=== PATIENT | male | born 1950 | race Caucasian/White ===

== ENCOUNTER 2020-04-28 05:38 | Inpatient (IN) ==
--- NOTE | 2020-04-21 16:10 | Anesthesiology Consultation ---
Date of Service April 21, 2020 Assessment & Plan (1) Encounter for pre-operative examination: Per nursing phone assessment on 04/21: Travel screen: Lives in [facility]. No known COVID-19 positive contacts. No history of COVID-19 testing. No current COVID-19 related symptoms. Chart Review Chart Review: Acceptable Risk for Surgery (pending surgeon-ordered PCP clearance (Dr. Maher)) and Patient NOT seen in Pre Admission Testing History Surgery Operation Date: 04/28/20 09:05 Proposed Procedures p Right Total Knee Arthroplasty - René Hatfield DO Height/Weight Height: 5 ft 11 in Weight: 92.079 kg Allergies Allergy/AdvReac Type Severity Reaction Status Date / Time morphine AdvReac Unknown AGITATION;AGGRESSIVE; Verified 04/21/20 13:21 RASH CONTRASTMEDIA Allergy Unknown IV Uncoded 04/21/20 13:21 CONTRAST CAUSES SWELLING Medications Home Medications Medication Instructions Recorded Confirmed Last Taken BEE POLLEN 1 tbsp PO QAM #0 11/15/06 04/21/20 Unknown acetaminophen 1,000 mg PO QID PRN 01/14/20 04/21/20 Unknown atorvastatin [Lipitor] 20 mg PO QAM 01/14/20 04/21/20 Unknown coenzyme Q10 [Co Q-10] 100 mg PO QAM 01/14/20 04/21/20 Unknown loratadine [Claritin] 10 mg PO DAILY PRN 01/14/20 04/21/20 Unknown magnesium 250 mg PO QAM 01/14/20 04/21/20 Unknown multivitamin 1 tab PO QAM 01/14/20 04/21/20 Unknown omega 6-wub-nrn-fish oil [Fish Oil] 1 cap PO DAILY 01/14/20 04/21/20 Unknown omeprazole 20 mg PO QAM 01/14/20 04/21/20 Unknown fluticasone propionate [Flonase 2 spray INTRANASAL DAILY PRN 04/21/20 04/21/20 Unknown Allergy Relief] turmeric 400 mg PO QAM 04/21/20 04/21/20 Unknown Past Medical History Medical History GERD (gastroesophageal reflux disease) Hyperlipidemia Osteoarthritis Restless leg syndrome Seasonal allergies Past Family History Family History Grandfather (Paternal) Family hx of colon cancer Past Surgical History Surgical History History of colonoscopy History of total left knee replacement Hx of appendectomy Hx of arthroscopic knee surgery X2 ON LEFT; X3 RIGHT Social History Smoking Status: Former smoker Do You Dip or Chew Tobacco: No (QUIT 18 YRS AGO) Smoking End Date: QUIT 18 YRS AGO Hx Alcohol Use: No Hx Substance Use: No Testing Laboratory Results 04/21/20 WBC 6.46 H/H 16.0/45.9 PLATELETS 224 SODIUM 139 POTASSIUM 4.0 CHLORIDE 106 CO2 29 BUN 12 CREATININE 1.01 GLUCOSE 90 PT 10.7 INR 1.0 HGBA1C 5.5% 01/20/20 PTT 27.2 Electrocardiogram Date: 01/20/20 SR with first degree AVB at 64bpm. Chest X-Ray Date: 01/20/20 Findings: + NAD
--- NOTE | 2020-04-23 13:08 | History & Physical Report ---
Date of Service April 23, 2020 Date of surgery: 04-28-20 Assessment & Plan (1) Arthritis of right knee: patient presents w/ increased pain in his right knee, had cortisone injection in August with mild relief, no relief from the Visco in October, we discussed his options including cortisone and total knee replacement. he would like to proceed with right TKA at [facility].Further care discussed with patient and at this point in time has failed conservative measures and would like to proceed with a Right total knee replacement. Plan on discharge will be home with home health physical therapy. DVT prophalaxis with TEDs, SCDs and will also place on aspirin 81 mg p.o. b.i.d. for a month postop. Patient will have follow up appointment in our office two weeks post op for staple/suture removal and re- evaluation. Patient otherwise has no other questions or concerns. History of Present Illness Chief Complaint: Right knee pain Primary Care Provider: Gallito Maher PA-C Mr March is a 69 year old male who is here for a follow up of right knee pain, presents for pre-op evaluation prior to a right total knee replacement at [facility]. He presents with pain, decreased rom and stiffness on the right side. He states that the symptoms have been chronic non-traumatic. The symptoms occur constantly with intermittent worsening. Currently the patient states that the symptoms are moderate-severe. The pain is described as aching and throbbing. He rates his current pain as 8/10. The symptoms are aggravated by daily activities including walking standing and using stairs. PATIENT HAD CORTISONE INJECTION IN AUGUST AND A DUROLANE INJECTION IN OCTOBER - did not notice much relief with either injection. He has also undergone previous knee scope x 2 on the right knee. Allergies Allergy/AdvReac Type Severity Reaction Status Date / Time morphine AdvReac Unknown AGITATION;AGGRESSIVE; Verified 04/21/20 13:21 RASH CONTRASTMEDIA Allergy Unknown IV Uncoded 04/21/20 13:21 CONTRAST CAUSES SWELLING Home Medications Home Medications Medication Instructions Recorded Confirmed Type BEE POLLEN 1 tbsp PO QAM #0 11/15/06 04/21/20 History acetaminophen 1,000 mg PO QID PRN 01/14/20 04/21/20 History atorvastatin [Lipitor] 20 mg PO QAM 01/14/20 04/21/20 History coenzyme Q10 [Co Q-10] 100 mg PO QAM 01/14/20 04/21/20 History loratadine [Claritin] 10 mg PO DAILY PRN 01/14/20 04/21/20 History magnesium 250 mg PO QAM 01/14/20 04/21/20 History multivitamin 1 tab PO QAM 01/14/20 04/21/20 History omega 3-bje-ayd-fish oil [Fish Oil] 1 cap PO DAILY 01/14/20 04/21/20 History omeprazole 20 mg PO QAM 01/14/20 04/21/20 History fluticasone propionate [Flonase 2 spray INTRANASAL DAILY PRN 04/21/20 04/21/20 History Allergy Relief] turmeric 400 mg PO QAM 04/21/20 04/21/20 History Past Med/Surg History Medical History GERD (gastroesophageal reflux disease) Hyperlipidemia Osteoarthritis Restless leg syndrome Seasonal allergies Surgical History History of colonoscopy History of total left knee replacement Hx of appendectomy Hx of arthroscopic knee surgery X2 ON LEFT; X3 RIGHT Family History Grandfather (Paternal) Family hx of colon cancer Social History Preferred Language: Occitan Communication Ability: Effective Waredresser Required: No Beliefs That Will Affect Care: None Current Living Situation: Spouse Feels Safe at Home: Yes Smoking Status: Former smoker Second Hand Exposure: No ; Hx Alcohol Use: No Hx Substance Use: No Review of Systems Review of Systems: All systems reviewed & are unremarkable except as noted in HPI & below Constitutional: no fever, no chills and no sweats Respiratory: no cough and no dyspnea Cardiovascular: no chest pain, no dyspnea and no orthopnea Gastrointestinal: no abdominal pain, no nausea and no vomiting Musculoskeletal: as per Subjective / HPI Physical Exam Physical Exam: Ht: 5ft 11in Wt: 92kg Constitutional: WD/WN, vitals as above no acute distress Respiratory: normal respiratory effort, lungs clear to auscultation no respiratory distress, no labored breathing and does not use accessory muscles Cardiovascular: RRR, no murmur, no edema Gastrointestinal (Abdomen): normal bowel sounds, soft, nontender, no hepatosplenomegaly Musculoskeletal: Knee: + knee abnormal to inspection (RIGHT KNEE), + effusion (+1 effusion), + surgical incision (well healed portals), + limited ROM of knee (ROM 0/3/110), + knee ROM with crepitation, + joint line tenderness (medial joint line) and + Hayden's sign positive; no deformity, no skin erythema, no ecchymosis, no valgus laxity, no varus laxity, anterior drawer test negative, Kalie's sign negative and pivot shift test negative Results & Data Results & Data ([facility]) Diagnostic Findings right knee xray showing complete loss joint space medial compartment with overall varus alignment, there is also narrowing of the lateral compartment and patellofemoral joint. there is osteophyte formation, subchondral sclerosis noted, no loose bodies, no acute bony pathology. overall impression tricompartmental degenerative changes to the right knee.
[~2020-04-28 05:38] MED LIST: MISSING PHYSICIAN SIGNATURE ON ORDER SCH
[2020-04-28] MEDS ORDERED: LR 500ML BOLUS, THEN 15ML/HR IV SCH (06:00)
[2020-04-28] MEDS ORDERED: ROPIVACAINE 0.5% 5 MG/ML 30 ML VIAL ONE (06:18)
[2020-04-28] MEDS ORDERED: BUPIVACAINE 0.5 % 5 MG/1 ML PF 10ML VIAL ONE (06:18)
[2020-04-28] MEDS ORDERED: EPINEPHrine INJ 1 MG/ML AMP ONE (06:18)
[2020-04-28] MEDS ORDERED: fentaNYL citrate 100 MCG/2 ML VIAL ONE (06:46)
[2020-04-28] MEDS ORDERED: LIDOCAINE HCL 2% 2 ML VIAL/AMP(20MG/ML) INFIL ONE (06:46)
[2020-04-28] MEDS ORDERED: MIDAZOLAM HCL 1 MG/ML 2ML VIAL ONE (06:46)
[2020-04-28] MEDS ORDERED: PROPOFOL IV EMULSION 10 MG/ML 20 ML VIAL IV ONE ×2 (06:46→09:25)
[2020-04-28] MEDS ORDERED: BACITRACIN INJ 50,000 UNIT VIAL ONE (06:51)
[2020-04-28] MEDS ORDERED: ORTHO JOINT ANESTHETIC ONE (06:51)
[2020-04-28] MEDS ORDERED: TRANEXAMIC ACID / 0.7% NACL 1000MG/100ML BAG IV ONE (07:10)
[2020-04-28] MEDS ORDERED: CeleBREX 200 MG CAP ONE (07:10)
[2020-04-28] MEDS ORDERED: CEFAZOLIN 2,000 MG/15 ML IV PUSH IV ONE (07:10)
--- NOTE | 2020-04-28 07:21 | History & Physical Bridge Note ---
Date of Service April 28, 2020 History & Physical Bridge Note I have examined the patient, reviewed the History & Physical and in the interval since the performance of the History & Physical I have noted the following changes of clinical significance: no changes noted
[2020-04-28] MEDS ORDERED: ROPIVACAINE 0.5% HCL/PF 150 MG, BUPIVACAINE 0.5% MPF 30 ML, EPINEPHrine 0.15 MG, Ketoro... INFIL ONE (08:30)
[2020-04-28] MEDS ORDERED: ePHEDrine sulfate 50 MG/ML AMP IV PRN (08:35)
[2020-04-28] MEDS ORDERED: ATROPINE SULFATE 0.1 MG/ML 10ML SYR IV PRN (08:35)
--- NOTE | 2020-04-28 08:44 | Operative Report ---
Post Operative Report Pre & Post Diagnosis Operation Date: 04/28/20 07:15 Pre-Op Diagnosis: RIGHT KNEE OSTEOARTHRITIS Post-Op Diagnosis: RIGHT KNEE OSTEOARTHRITIS I identified the patient and participated in the time-out.: Yes Procedure Operation Date: 04/28/20 07:15 Actual Procedures p Right Total Knee Arthroplasty(Right) utilizing Brina persona TKA right medial constrained femur CR right 11 narrow tibia size G poly-medial congruent 10 mm patella 31 x 8 oval- René Hatfield DO Surgeon René Hatfield DO Dopster DOE Williamson Estimated Blood Loss 10 Findings Consistent with Post-Op Diagnosis Patient presents with severe end-stage tricompartmental degenerative joint disease no response to conservative management patient with evidence of bone to bone changes subchondral sclerosis marginal osteophytes varus alignment moderate to large effusion although response to conservative management Specimens Bone and cartilage Drains Medium bore Hemovac Anesthesia Type MAC Regional Complications none Disposition Accompanied Patient To Recovery: No Disposition: Recovery Room Indications Patient presents with severe end-stage DJD right knee after failed attempted conservative management and physical therapy anti-inflammatories relative rest activity modification corticosteroid injection Visco supplementation bracing and rest the above intraoperative findings are noted time surgery. Description of Procedure Initiation of regional and sedation with spinal block the right lower extremity socially prepped and draped in usual sterile fashion for surgery of this type utilize #10 blade incision made in the region of the anterior aspect of the knee and medial parapatellar incision was subsequently created the patella was subluxed laterally lateralward the fat pad was partially removed medial lateral meniscal remnants were removed the distal femur was prepared and skeletonized for appropriate cutting utilizing a patient matched femoral block distal femur osteotomy cut was made for 1 block was used to make additional chamfer cuts osteophytes were removed and the wound was irrigated with copious muscle sterile saline solution anterior posterior cruciate ligaments were removed the tibia was subluxed anteriorward remaining meniscal fragments were removed the proximal tibial osteotomy cut was made utilizing extramedullary tibial cutting guide stress test was paid to the neurovascular structures at all times the tibial sizing guide was used and a size G was noted to be appropriate size 11 narrow femur was placed trials were placed the patella was then socially prepared utilizing a freehand cut patella was cut to re-create normal patellar anatomy utilizing an oval 31 x 8 patella gave excellent tracking there was full range of motion from 0 to 145 degrees of flexion with stability throughout all ranges including flexion extension mid flexion trials were evaluated trials were removed subsequently the joint mix was placed in the posterior capsule special isolated paid to protect neurovascular structures at all times the final components were brought on the field and cemented in the following order tibia femur patella patellar tracking was noted be excellent the knee stability was excellent throughout all ranges of motion the wound was irrigated with copious muscle sterile saline solution Betadine wash was used the deep incision was closed #1 Vicryl subcu was closed 2-0 Vicryl skin was closed with running subcuticular suture and skin glue sterile compressive dressing was placed please note a medium bore Hemovac in place in a deep wound chloé Ayse AZAR was necessary for prepping draping retraction wound closure of deep fascia subcu and skin was necessary for the case I attest to the content of the Intraoperative Record and any orders documented therein. Any exceptions are noted below.
--- NOTE | 2020-04-28 09:48 | XRay Report ---
XR knee RT 1 or 2V routine CLINICAL HISTORY: Postop examination COMPARISON: None. DISCUSSION: There are postsurgical changes of a total right knee arthroplasty and patellar resurfacin g. There is gas present within the soft tissues. There are overlying surgical drains. The femoral tib ial components appear well seated. IMPRESSION: Postsurgical changes of a total right knee arthroplasty. ACT 112: Negative or not required by law. Electronically signed by: Danny Musa M.D. 04/28/2020 9:47 AM
--- NOTE | 2020-04-28 10:00 | Anesthesiology Progress Note ---
Date of Service April 28, 2020 Anesthesia Post Procedure Vital Signs Vital Signs: Temp Pulse Pulse Resp BP BP Pulse Ox 04/28/20 09:50 64 15 114/66 97 04/28/20 09:40 65 13 107/65 97 04/28/20 09:30 65 15 118/71 95 04/28/20 09:21 36.4 C L 71 16 109/76 96 04/28/20 06:12 36.5 C 66 16 142/91 H 97 Pain Intensity Right Knee: Pain Intensity: 5 Transfer of Care Handoff Completed per policy Notes Mental Status: alert / awake / arousable Patient Amnestic to Procedure: Yes Nausea / Vomiting: adequately controlled Pain: adequately controlled Airway Patency, RR, SpO2: stable & adequate BP & HR: stable & adequate Hydration State: stable & adequate Neuraxial Anesthesia: was administered and sensory block is resolving Anesthetic Complications: no major complications apparent
[2020-04-28] MEDS ORDERED: bisacodyL 10 MG SUPP PR PRN (10:39)
[2020-04-28] MEDS ORDERED: LORATADINE 10 MG TAB PO PRN (10:39)
[2020-04-28] MEDS ORDERED: HYDROmorphone INJ 1 MG/ML SYRINGE IV PRN (10:39)
[2020-04-28] MEDS ORDERED: NALOXONE HCL 0.4 MG/1 ML VIAL/CARP IV PRN (10:39)
[2020-04-28] MEDS ORDERED: METOCLOPRAMIDE HCL INJ 5 MG/ML 2 ML VIAL IV PRN (10:39)
[2020-04-28] MEDS ORDERED: ONDANSETRON INJ 2 MG/ML 2 ML VIAL IV PRN (10:39)
[2020-04-28] MEDS ORDERED: FLUTICASONE PROPIONATE NA SPR 16 GM BTL PRN (10:39)
[2020-04-28] MEDS ORDERED: MAGNESIUM HYDROXIDE SUSP 30 ML UDC PO PRN (10:39)
[2020-04-28] MEDS ORDERED: OXYCODONE HCL IR 5 MG TAB (IMMEDIATE RELEASE) PO PRN (10:39)
[2020-04-28] MEDS: SODIUM CHLORIDE 0.9% 1000ML 1,000 ML IV SCH ×2 (11:35→21:20)
[2020-04-28] MEDS: KETOROLAC TROMETHAMINE 15 MG/ML VIAL IV SCH ×2 (13:05→17:30)
[2020-04-28] MEDS: ACETAMINOPHEN 500 MG TAB PO SCH ×2 (13:55→21:20)
[2020-04-28] MEDS: CEFAZOLIN 2000MG 2,000 MG/15 ML SYR IV SCH (16:49)
[2020-04-28] MEDS: SENNA 8.6 MG TAB PO SCH ×2 (21:20→21:22)
[2020-04-28] MEDS: DOCUSATE SODIUM 100 MG CAP PO SCH ×2 (21:20→21:22)
[2020-04-28] MEDS: ASPIRIN 81 MG ECTAB PO SCH (21:20)
[2020-04-29] MEDS: KETOROLAC TROMETHAMINE 15 MG/ML VIAL IV SCH ×2 (00:36→05:42)
[2020-04-29] MEDS: CEFAZOLIN 2000MG 2,000 MG/15 ML SYR IV SCH (00:37)
[2020-04-29] MEDS: ACETAMINOPHEN 500 MG TAB PO SCH (05:41)
[2020-04-29 06:18] LABS: Hematocrit (blood only) 38.9 % (42-52); Hemoglobin 13.5 g/dL (14.0-18.0); Mean Corpuscular Hemoglobin 33.2 pg (25-34); Mean Corpuscular Hgb Conc 34.7 g/dL (32-36); Mean Corpuscular Volume 95.6 fL (80-100); Mean Platelet Volume 10.6 fL (7.4-10.4); Platelet Count 148 K/uL (130-400); RDW Coefficient of Variation 13.4 % (11.5-14.5); RDW Standard Deviation 46.9 fL (36.4-46.3); Red Blood Count 4.07 M/uL (4.7-6.1); White Blood Count 14.65 K/uL (4.8-10.8)
[2020-04-29 06:53] LABS: BUN Creatinine Ratio 18.3 (10-20); Est GFR (African American) 86.1; Est GFR (Non-African American) 74.3; Potassium 4.2 mmol/L (3.5-5.1)
--- NOTE | 2020-04-29 07:24 | Orthopedic Progress Note ---
Date of Service April 29, 2020 Assessment & Plan (1) History of total right knee replacement: POD #1 s/p Right TKA pt/ot dvt proph with JABIER/SCD/ASA plan for d/c home with OPPT when stable Admission and Anticipated Discharge Date Admission Date: April 28, 2020 Subjective POD #1 s/p Right TKA Review of Systems Constitutional: no fever, no chills and no sweats Respiratory: no cough and no dyspnea Cardiovascular: no chest pain and no dyspnea Gastrointestinal: no abdominal pain, no nausea and no vomiting Physical Exam Physical Exam: Vital Signs Temp Pulse Pulse Resp BP BP Pulse Ox 04/29/20 03:23 36.8 C 65 16 132/76 96 04/28/20 23:49 36.6 C 62 16 119/71 95 04/28/20 19:19 36.8 C 68 18 153/83 H 99 04/28/20 15:00 36.6 C 74 18 104/69 97 04/28/20 13:31 36.9 C 77 16 115/79 97 04/28/20 12:26 37.1 C 72 18 97/66 L 99 04/28/20 11:32 36.5 C 73 17 98/67 L 99 04/28/20 11:02 36.5 C 70 17 116/72 99 04/28/20 10:25 36.9 C 67 16 111/72 97 04/28/20 10:10 70 19 129/66 94 04/28/20 10:00 36.9 C 65 13 118/67 97 04/28/20 09:50 64 15 114/66 97 04/28/20 09:40 65 13 107/65 97 04/28/20 09:30 65 15 118/71 95 04/28/20 09:21 36.4 C L 71 16 109/76 96 Intake and Output 04/28/20 04/29/20 04/29/20 22:59 06:59 14:59 Intake Total 1475 / 4533.333 583.333 / 4533.333 Output Total 900 / 1595 600 / 1595 Balance 575 / 2938.333 -16.667 / 2938.333 Intake: IV 975 / 1818.333 343.333 / 1818.333 Nss 1000ML 1,0 00 ml @ 100 mls/ 975 / 1318.333 343.333 / 1318.333 hr IV .Q10H SC H Rx#:[id number] Oral 500 / 1015 240 / 1015 Output: Urine 650 / 1100 450 / 1100 Drain Output 250 / 485 150 / 485 Right Knee 250 / 485 150 / 485 Other: # Unmeasured Voi ds 1 1 Constitutional: WD/WN, vitals as above no acute distress Musculoskeletal: Right Leg: NVDI, calf SNT, negative richy sign. DP palpable, able to wiggle toes/ankle movement without difficulty. dressing clean dry and intact. Results & Data ([facility]) Vital Signs (Past 12 Hours) Vital Signs Temp Pulse Resp BP BP Pulse Ox 04/29/20 03:23 36.8 C 65 16 132/76 96 04/28/20 23:49 36.6 C 62 16 119/71 95 Laboratory Results Laboratory Results WBC 14.65 K/uL (4.8-10.8) H 04/29/20 05:22 RBC 4.07 M/uL (4.7-6.1) L 04/29/20 05:22 Hgb 13.5 g/dL (14.0-18.0) L 04/29/20 05:22 Hct 38.9 % (42-52) L 04/29/20 05:22 MCV 95.6 fL (80-100) 04/29/20 05:22 MCH 33.2 pg (25-34) 04/29/20 05:22 MCHC 34.7 g/dL (32-36) 04/29/20 05:22 RDW Std Deviation 46.9 fL (36.4-46.3) H 04/29/20 05:22 RDW Coeff of Dora 13.4 % (11.5-14.5) 04/29/20 05:22 Plt Count 148 K/uL (130-400) 04/29/20 05:22 MPV 10.6 fL (7.4-10.4) H 04/29/20 05:22 Sodium 139 mmol/L (136-145) 04/29/20 05:22 Potassium 4.2 mmol/L (3.5-5.1) 04/29/20 05:22 Chloride 108 mmol/L (98-107) H 04/29/20 05:22 Carbon Dioxide 24 mmol/L (21-32) 04/29/20 05:22 Anion Gap 6.0 (3-11) 04/29/20 05:22 BUN 19 mg/dl (7-18) H 04/29/20 05:22 Creatinine 1.03 mg/dl (0.6-1.4) 04/29/20 05:22 Est Cr Clr Drug Dosing 80.0 ml/min 04/29/20 05:22 Est GFR ( Amer) 86.1 04/29/20 05:22 Est GFR (Non-Af Amer) 74.3 04/29/20 05:22 BUN/Creatinine Ratio 18.3 (-20) 04/29/20 05:22 Glucose 103 mg/dl (70-99) H 04/29/20 05:22 POC Glucose 107 mg/dl (70-99) H 04/28/20 12:19 Calcium 8.0 mg/dl (8.5-10.1) L 04/29/20 05:22 Blood Type O Positive 04/28/20 06:03 Antibody Screen NEGATIVE 04/28/20 06:03 Crossmatch See Detail 04/28/20 06:03 Diagnostic Findings XR knee RT 1 or 2V routine CLINICAL HISTORY: Postop examination COMPARISON: None. DISCUSSION: There are postsurgical changes of a total right knee arthroplasty and patellar resurfacing. There is gas present within the soft tissues. There are overlying surgical drains. The femoral tibial components appear well seated. IMPRESSION: Postsurgical changes of a total right knee arthroplasty.
[2020-04-29] MEDS: ASPIRIN 81 MG ECTAB PO SCH (08:15)
[2020-04-29] MEDS: DOCUSATE SODIUM 100 MG CAP PO SCH (08:16)
--- NOTE | 2020-04-29 08:29 | Anesthesiology Progress Note ---
Date of Service April 29, 2020 Anesthesia Post Procedure Vital Signs Vital Signs: Temp Pulse Pulse Resp BP BP Pulse Ox 04/29/20 07:50 36.9 C 58 L 18 157/83 H 97 04/29/20 03:23 36.8 C 65 16 132/76 96 04/28/20 23:49 36.6 C 62 16 119/71 95 04/28/20 19:19 36.8 C 68 18 153/83 H 99 04/28/20 15:00 36.6 C 74 18 104/69 97 04/28/20 13:31 36.9 C 77 16 115/79 97 04/28/20 12:26 37.1 C 72 18 97/66 L 99 04/28/20 11:32 36.5 C 73 17 98/67 L 99 04/28/20 11:02 36.5 C 70 17 116/72 99 04/28/20 10:25 36.9 C 67 16 111/72 97 04/28/20 10:10 70 19 129/66 94 04/28/20 10:00 36.9 C 65 13 118/67 97 04/28/20 09:50 64 15 114/66 97 04/28/20 09:40 65 13 107/65 97 04/28/20 09:30 65 15 118/71 95 04/28/20 09:21 36.4 C L 71 16 109/76 96 Pain Intensity Right Knee: Pain Intensity: 4 Notes Mental Status: alert / awake / arousable and participated in evaluation Nausea / Vomiting: adequately controlled Pain: adequately controlled Airway Patency, RR, SpO2: stable & adequate BP & HR: stable & adequate Hydration State: stable & adequate Neuraxial Anesthesia: was administered and sensory block resolved Anesthetic Complications: no major complications apparent and Pt Satisfied with anesthetic care
[2020-04-29] MEDS ORDERED: MAGNESIUM OXIDE 400 MG TAB PO SCH (09:00)
[2020-04-29] MEDS ORDERED: MULTIVITAMIN TAB PO SCH (09:00)
[2020-04-29] MEDS ORDERED: ATORVASTATIN 20 MG TAB PO SCH (09:00)
[2020-04-29] MEDS ORDERED: CeleBREX 200 MG CAP PO SCH (12:00)
--- NOTE | 2020-04-29 19:18 | Discharge Summary ---
Date of Service date of discharge: April 29, 2020 date of admission: 04-28-20 Admission HPI Per Admitting Provider Mr March is a 69 year old male who is here for a follow up of right knee pain, presents for pre-op evaluation prior to a right total knee replacement at [facility]. He presents with pain, decreased rom and stiffness on the right side. He states that the symptoms have been chronic non-traumatic. The symptoms occur constantly with intermittent worsening. Currently the patient states that the symptoms are moderate-severe. The pain is described as aching and throbbing. He rates his current pain as 8/10. The symptoms are aggravated by daily activities including walking standing and using stairs. PATIENT HAD CORTISONE INJECTION IN AUGUST AND A DUROLANE INJECTION IN OCTOBER - did not notice much relief with either injection. He has also undergone previous knee scope x 2 on the right knee. Principal Diagnosis right knee arthritis Discharge Exam Vital Signs Temp Pulse Resp BP BP Pulse Ox 04/29/20 10:43 36.9 C 58 L 18 132/76 157/83 H 97 04/29/20 07:50 36.9 C 58 L 18 157/83 H 97 04/29/20 03:23 36.8 C 65 16 132/76 96 04/28/20 23:49 36.6 C 62 16 119/71 95 04/28/20 19:19 36.8 C 68 18 153/83 H 99 Intake and Output 04/29/20 04/29/20 04/29/20 06:59 14:59 22:59 Intake Total 583.333 / 4533.333 Output Total 600 / 1595 Balance -16.667 / 2938.333 Intake: IV 343.333 / 1818.333 Nss 1000ML 1,000 ml @ 100 mls/ 343.333 / 1318.333 hr IV .Q10H LADY Rx#:[id number] Oral 240 / 1015 Output: Urine 450 / 1100 Drain Output 150 / 485 Right Knee 150 / 485 Other: # Unmeasured Voids 1 Weight 93 kg Patient Weight 04/30/20 06:59 Weight 93 kg Constitutional WD/WN, vitals as above no acute distress Musculoskeletal right knee: NVDI, calf SNT, negative richy sign. DP palpable, able to wiggle toes/ankle movement without difficulty. dressing clean dry and intact. expected post-operative bruising noted. Discharge Data Allergies Allergy/AdvReac Type Severity Reaction Status Date / Time morphine AdvReac Unknown AGITATION;AGGRESSIVE; Verified 04/28/20 05:59 RASH CONTRASTMEDIA Allergy Unknown IV Uncoded 04/28/20 05:59 CONTRAST CAUSES SWELLING Consultations 04/28/20 10:39 Consult Case Management - Discharge Planning Routine Procedures Performed Operation Date: 04/28/20 07:15 Actual Procedures p Right Total Knee Arthroplasty(Right) - René Hatfield DO Ordered Studies 04/28/20 05:00 US - OR guided needle placemen Routine Hospital Course (1) History of total right knee replacement: POD #1 s/p Right TKA pt/ot dvt proph with JABIER/SCD/ASA plan for d/c home with OPPT when stable Total Time Total Time Spent Total Time Spent (In Minutes): 20 Total Time Includes: Examination of the Patient, Discharge Planning and Medication Reconciliation Discharge Plan Discharge Items Patient Disposition: Home - Self-Care Reason For Visit: RIGHT KNEE OSTEOARTHRITIS Discharge Diagnosis: right knee replacement Condition on Discharge: Good Activity: Per Instructions section Weightbearing: Full weightbearing and Right weightbearing Non-emergency contact: Surgeon Call non-emergency contact if: you have any medication questions, your temperature is above 101, your wound has increased redness, your wound has increased drainage and your wound pain has increased Follow-up/Referrals: Gallito Maher PA-C [Primary Care Provider] - Diet: Regular Addtl Attending Provider Instructions: ACTIVITY RECOMMENDATIONS: SELF CARE INSTRUCTIONS AFTER TOTAL KNEE REPLACEMENT A. You may need to continue a physical therapy program after discharge from the hospital. There are several options available to you. Your doctor will assist you in selecting the best one for you. 1. An out-patient facility 2 to 3 times a week for therapy or home therapy. 2. Continue working on all exercises taught to you in the hospital. Your goals should be to increase bending of your knee to 90 degrees and beyond and to fully straighten your knee. B. You may progress at your own pace from walking with a walker or crutches to a cane; then to no assistive devices. C. Make walking a part of your daily routine. Be up as much as comfortable with rest periods throughout the day. Rest with leg elevation is very important. Use the ice wrap frequently for the first 3-4 weeks. D. There are no restrictions on activities. You may ride in a car, shop, participate in drier feeder and all social activities. E. Wear the long elastic stockings (JABIER hose) 20 hours a day for 2 weeks after surgery. They can be removed several times a day for laundering and for a bath. F. You may shower, no tub baths until cleared by your doctor. SPECIAL CARE INSTRUCTIONS: VERY IMPORTANT TO READ AND REVIEW A. There are a few signs you need to watch for after you are home. Call [facility] [place] if you notice any of the followin. Increased severe knee pain. Some pain is expected especially when you exercise. 2. Increased swelling in your leg or knee; pain or swelling of the calf muscle in either lower leg. 3. Any fluid drainage from the incision. 4. Shortness of breath or chest pain. B. Please call [facility] at if you have any concerns or questions about your operation or recovery. The doctor or his nurse will return your call promptly. C. You must take antibiotics before dental work, bladder, bowel or other surgery. Your doctor will provide you with a permanent care to carry describing this precaution. IMPORTANT: * REMEMBER TO TAKE ASPIRIN, 81 MG, TWICE DAILY FOR 4 WEEKS UNLESS OTHERWISE DIRECTED. THIS IS YOUR BLOOD THINNER. * HIGH RISK PATIENTS MAY BE PRESCRIBED A STRONGER BLOOD THINNER. THIS WILL BE PROVIDED AT DISCHARGE. * CALL IF INCREASED PAIN, REDNESS, DRAINAGE OR FEVER GREATER THAT 101. * WEAR JABIER HOSE 20 HOURS PER DAY FOR 2 WEEKS. * DERMABOND Prineo- This is a mesh tape dressing that is covered with glue. It should remain in place until the incision is properly healed, usually 10-14 days. This dressing is designed to naturally slough off. You may trim the excess mesh tape as it peels off. Incision may be briefly wet in a shower. Dry immediately by blotting with a clean, dry towel. Do not bath or swim until instructed by your doctor. Do not scratch, rub, or pick at the dressing. Do not apply any topical ointments or lotions until dressing is completely removed and/or instructed by your doctor. There may be a small piece of suture material at one end of your incision. Do not pull or trim this. If it is bothersome or catching on clothing, you may cover it with a band-aid. IF INCISION IS LEAKING THROUGH DRESSING, CALL THE OFFICE . FOLLOW UP VISIT: If appointment is not already scheduled: Please call [facility] [place] to make a follow-up appointment for 2 weeks after your surgery at . Pending Studies at Discharge: No Stand-Alone Forms: My [facility], Opioid Pain Management, Smoking Cessation Medications and DC Order Prescriptions: New celecoxib [Celebrex] 200 mg Capsule 200 mg PO BID 30 Days Qty: 60 RF: 0 aspirin 81 mg Tablet,Delayed Release (Dr/Ec) 81 mg PO BID 30 Days Qty: 60 RF: 0 acetaminophen 500 mg Tablet 1,000 mg PO Q8 21 Days Qty: 126 RF: 0 oxycodone 5 mg Tablet 5 - 10 mg PO Q6H PRN (Reason: pain) Qty: 30 RF: 0 docusate sodium 100 mg Capsule 100 mg PO BID 10 Days Qty: 20 RF: 0 cefadroxil 500 mg capsule 500 mg PO BID 10 Days Qty: 20 RF: 0 Continued magnesium 250 mg Tablet 250 mg PO QAM RF: 0 loratadine [Claritin] 10 mg Tablet 10 mg PO DAILY PRN (Reason: ALLERGIES) RF: 0 omeprazole 20 mg Tablet,Disintegrat, Delay Rel 20 mg PO QAM RF: 0 atorvastatin [Lipitor] 20 mg Tablet 20 mg PO QAM RF: 0 multivitamin Tablet 1 tab PO QAM RF: 0 fluticasone propionate [Flonase Allergy Relief] 50 mcg/actuation [place],Suspension 2 spray INTRANASAL DAILY PRN (Reason: Congestion) RF: 0 Discontinued BEE POLLEN 1 tbsp PO QAM Qty: 0 RF: 0 acetaminophen 500 mg Tablet 1,000 mg PO QID PRN (Reason: Pain) RF: 0 coenzyme Q10 [Co Q-10] 100 mg Capsule 100 mg PO QAM RF: 0 omega [id number] oil [Fish Oil] 1,000 mg (120 mg-180 mg) Capsule 1 cap PO DAILY RF: 0 turmeric 400 mg Capsule 400 mg PO QAM RF: 0 Discharge Orders: Discharge Order (Routine); Ordered 04/29/20 Ordered By: Cayetano Ny/Other Patient Handouts: Knee How Works Admission Data Admit Date/Time: 04/28/20 09:18 Attending Provider: René Hatfield Admit Provider: René Hatfield Primary Care Provider: Gallito Maher Other Interventions: Discharge Summary Assessment (RN) Last Done: 04/29/20 10:43 DC Date/Time DO NOT enter until pt leaves facility: 04/29/20 13:04
== END 2020-04-29 13:04 | disposition home or self-care (01) | DRG 470 ==
LOC: ASU 05:38 → 3E 09:18

== ENCOUNTER 2020-05-12 20:18 | Inpatient (IN) ==
[2020-05-12] MEDS ORDERED: ONDANSETRON INJ 2 MG/ML 2 ML VIAL IV STA (20:29)
[2020-05-12] MEDS ORDERED: SODIUM CHLORIDE 0.9% 1000ML 1,000 ML IV SCH (20:30)
[2020-05-12] MEDS ORDERED: DOXYCYCLINE HYCLATE 100 MG in DEXTROSE 5% 100 ML IV STA (20:41)
[2020-05-12] MEDS ORDERED: SODIUM CHLORIDE 0.9% 1000ML 500 ML IV ONE (20:41)
--- NOTE | 2020-05-12 20:50 | XRay Report ---
XR chest 1V portable CLINICAL HISTORY: fever COMPARISON STUDY: 01/20/2020 FINDINGS: The examination was obtained in a supine fashion. The heart is the upper limits of normal i n size. There is no focal pulmonary consolidation. There is no overt failure. There are no pleural ef fusions.[ IMPRESSION: 1. Portable supine study 2. No evidence of focal pulmonary consolidation. No evidence of overt failure ACT 112: Negative or not required by law. Electronically signed by: Danny Musa M.D. 05/12/2020 8:49 PM
[2020-05-12] MEDS ORDERED: HYDROmorphone INJ 0.5 MG/0.5 ML SYR IV STA (21:24)
[2020-05-12 21:30] LABS: Hematocrit (blood only) 42.5 % (42-52); Hemoglobin 14.1 g/dL (14.0-18.0); Mean Corpuscular Hemoglobin 31.8 pg (25-34); Mean Corpuscular Hgb Conc 33.2 g/dL (32-36); Mean Corpuscular Volume 95.9 fL (80-100); Nucleated RBC # (auto) 0.02 K/uL (0-0); Nucleated RBC % (auto) 0.3 %; RDW Coefficient of Variation 13.8 % (11.5-14.5); Red Blood Count 4.43 M/uL (4.7-6.1); White Blood Count 8.38 K/uL (4.8-10.8)
[2020-05-12 21:37] LABS: INR 1.4 (0.9-1.1); Prothrombin Time 14.6 Seconds (9.0-12.0)
[2020-05-12 21:47] LABS: Albumin Level 2.6 gm/dl (3.4-5.0); BUN Creatinine Ratio 8.7 (10-20); Calcium 8.4 mg/dl (8.5-10.1); Creatinine Clr Calc Pharmacy 40.6 ml/min; Est GFR (African American) 36.6; Est GFR (Non-African American) 31.6; Potassium 3.6 mmol/L (3.5-5.1)
[2020-05-12 21:49] LABS: Mean Platelet Volume 11.9 fL (7.4-10.4); Platelet Count 65 K/uL (130-400)
[2020-05-12 21:50] LABS: Basophils # (auto) 0.01 K/uL (0-0.2); Basophils % (auto) 0.1 %; Eosinophils # (auto) 0.03 K/uL (0-0.5); Eosinophils % (auto) 0.4 %; Giant Platelets 1+; Immature Granulocytes # (auto) 0.25 K/uL (0.00-0.02); Lymphocytes % (auto) 2.4 %; Monocytes # (auto) 0.29 K/uL (0.11-0.59); Monocytes % (auto) 3.5 %; Neutrophils % (auto) 90.6 %; Platelet Estimate Decreased (Normal)
[2020-05-12 21:55] LABS: Albumin Globulin Ratio 0.8 (0.9-2); Bilirubin,Total 0.9 mg/dl (0.2-1); Globulin 3.4 gm/dl (2.5-4.0); Troponin I 2.33 ng/ml (0-0.045)
[2020-05-12] MEDS ORDERED: cefTRIAXone SODIUM 2,000 MG/70 ML BAG IV STA (22:00)
[2020-05-12] MEDS ORDERED: ASPIRIN 81 MG CHEW PO STA (22:02)
[2020-05-12] MEDS ORDERED: SODIUM CHLORIDE 0.9% 1000ML 1,000 ML IV ONE (22:08)
[2020-05-12 22:47] LABS: Magnesium 1.3 mg/dl (1.8-2.4); Thyroid Stimulating Hormone 7.89 uIu/ml (0.300-4.500)
[2020-05-12] MEDS ORDERED: DAPTOMYCIN CONSULT ACTIVE PRN (23:00)
[2020-05-12] MEDS ORDERED: LACTATED RINGER'S 1,000 ML IV ONE (23:00)
[2020-05-12] MEDS ORDERED: NORMOSOL-R 1,000 ML IV ONE (23:00)
[2020-05-12] MEDS ORDERED: DAPTOmycin 1 MG in SYRINGE 0 ML IV ONE (23:00)
[2020-05-12] MEDS ORDERED: DAPTOmycin 450 MG in SYRINGE 0 ML IV STA (23:03)
[2020-05-12] MEDS ORDERED: HYDROmorphone INJ 0.5 MG/0.5 ML SYR IV PRN (23:11)
[2020-05-12] MEDS ORDERED: PROMETHAZINE HCL 12.5 MG in SODIUM CHLORIDE 0.9% 50 ML IV PRN (23:11)
[2020-05-12] MEDS: MAGNESIUM SULFATE / D5W 1 GM/100 ML BAG IV SCH (23:34)
[2020-05-12 23:38] LABS: Lyme Ab IgG w/WB Rflx Negative (Negative); Lyme Ab IgM w/WB Rflx Negative (Negative)
[2020-05-12 23:50] LABS: BUN Creatinine Ratio 9.9 (10-20); Calcium 7.2 mg/dl (8.5-10.1); Creatinine Clr Calc Pharmacy 36.4 ml/min; Est GFR (African American) 32.1; Est GFR (Non-African American) 27.7; Potassium 3.7 mmol/L (3.5-5.1)
[2020-05-13] LABS: Troponin I 2.6 ng/ml (0-0.045)
--- NOTE | 2020-05-13 00:04 | History & Physical Report ---
Date of Service May 13, 2020 Assessment & Plan (1) Severe sepsis: SIRS plus ARF plus lactic acid elevation Similar presentation at [facility] last week. Cultures without yield during confinement. Possible sources : Septic joint, recent right TKA (of note right knee pain/swelling usual as per patient) Infective endocarditis (? systolic murmur) Rule out UTI Troponin elevation secondary to sepsis in the setting of kidney dysfunction Patient without chest pain, S OB complaints. hypertension, not on home meds Patient hypotensive upon arrival at the ER. BP slowly improving. prediabetes, outpatient hemoglobin A1c off 5.27 September 2019 Thrombocytopenia, noted during recent [facility] confinement family history dementia on preventative Aricept as per records past tobacco/ alcohol abuse PCU Cultures, Daptomycin, Cefepime IVF, follow lactic acid Follow troponin, TTE if with progression Orthopedics consult RE postop eval right TKA N.p.o. until patient seen by orthopedics in anticipation of any procedure Further management pending work-up results Baseline UA, monitor creatinine response to IVF DVT prophylaxis. SCDs RE thrombocytopenia Full code Total critical care time was 45 minutes. Text document was generated using [employer] voice recognition software. It may contain grammatical or spelling errors. Kindly contact undersigned for clarification of any documentation item in question. History of Present Illness Chief Complaint: Fall, fever, nausea, vomiting. Primary Care Provider: Gallito Maher PA-C History obtained from patient and records. Medical history significant for hypertension, GERD, prediabetes, family history dementia on preventative Aricept as per records, past tobacco/alcohol abuse. Recent confinement [facility] from April 25-2019 for elective R total knee arthroplasty under Orthopedics service. Patient admitted at [facility] from May 05-2019 for seps is, mild pancreatitis, and thrombocytopenia. No clear source for infection as per records. Antibiotic subsequently discontinued. No clear etiology for pancreatitis as patient had stop claims to have stopped drinking years ago. Denied recent alcohol consumption. Outpatient GI referral for endoscopic ultrasound contemplated in 6 weeks. Patient not feeling well yesterday feeling feverish and nauseous. Patient felt more sick after oxycodone and Celebrex Rx. Achy abdominal pain following emesis symptoms. No diarrhea as per patient. Denies UTI symptoms. No chest pain, no S OB, no cough/flulike symptoms. Usual achy right knee pain although no unusual swelling noted. Achy back pain after falling down. Achy headache without neck pain without LOC. No recollection of recent tick bites although patient enjoys hunting. Patient noted to be hypotensive and tachycardic upon arrival of EMS. Ceftriaxone and doxycycline given at the ER for sepsis. Medical History as above Surgical History : Knee surgery, tonsillectomy, adenectomy, varicose vein procedure Family History : Colon cancer, hypertension Personal/Social history : Past tobacco/alcohol use, lives with Allergies Allergy/AdvReac Type Severity Reaction Status Date / Time Iodinated Contrast Media Allergy Unknown Swelling Verified 05/12/20 21:40 celecoxib [From Celebrex] AdvReac Intermediate Nausea/Vomi Verified 05/12/20 21:54 ting oxycodone AdvReac Intermediate Nausea/Vomi Verified 05/12/20 21:54 ting morphine AdvReac Unknown AGITATION;AGGRESSIVE; Verified 05/12/20 21:41 RASH Home Medications Home Medications Medication Instructions Recorded Confirmed Type atorvastatin [Lipitor] 20 mg PO QAM 01/14/20 05/12/20 History loratadine [Claritin] 10 mg PO DAILY PRN 01/14/20 05/12/20 History magnesium 250 mg PO QAM 01/14/20 05/12/20 History multivitamin 1 tab PO QAM 01/14/20 05/12/20 History omeprazole 20 mg PO QAM 01/14/20 05/12/20 History fluticasone propionate [Flonase 2 spray INTRANASAL DAILY PRN 04/21/20 05/12/20 History Allergy Relief] acetaminophen 1,000 mg PO Q8H 05/12/20 05/12/20 History aspirin 81 mg PO QAM 05/12/20 05/12/20 History donepezil 10 mg PO HS 05/12/20 05/12/20 History Past Med/Surg History Medical History GERD (gastroesophageal reflux disease) Hyperlipidemia Osteoarthritis Restless leg syndrome Seasonal allergies Surgical History History of colonoscopy History of total left knee replacement Hx of appendectomy Hx of arthroscopic knee surgery X2 ON LEFT; X3 RIGHT Family History Grandfather (Paternal) Family hx of colon cancer Social History Preferred Language: Cymraes Communication Ability: Effective Internet Site Designer Required: No Beliefs That Will Affect Care: None marital status: Current Living Situation: Spouse Other Information That Helps Us Care for You: No Feels Safe at Home: Yes Safety Concerns: Feels Safe At This Time Smoking Status: Former smoker Second Hand Exposure: No ; Hx Alcohol Use: No Hx Substance Use: No Review of Systems Review of Systems: As per HPI, all 10 systems reviewed, all other ROS negative Physical Exam Physical Exam: GENERAL: Slightly uncomfortable, pleasant, no respiratory distress SKIN: Pallor , warm HEENT: Pale palpebral conjunctivae, no ptosis, dry buccal mucosa NECK : Supple, no tenderness CHEST : CTA, no tenderness HEART : RRR, ? systolic murmur ABDOMEN: Some distention, minimal hypogastric tenderness EXTREMITIES : Minimal right knee swelling without overt tenderness, minimal right knee tenderness, no other conspicuous deformities noted NEUROLOGIC : Coherent, no facial asymmetry, mild hearing impairment, no other gross focality Results & Data Results & Data ([facility]) Vital Signs (Past 12 Hours) Vital Signs Temp Pulse Pulse Resp BP BP Pulse Ox 05/12/20 23:40 89 24 96 05/12/20 23:30 91 H 20 97 05/12/20 23:20 87 22 97 05/12/20 23:10 87 24 05/12/20 23:01 88 17 90 05/12/20 23:00 89 22 99/65 L 93 05/12/20 22:50 88 21 94 05/12/20 22:40 88 20 95 05/12/20 22:31 92 H 23 93 05/12/20 22:30 91 H 19 114/67 93 05/12/20 22:20 90 17 05/12/20 22:10 94 H 20 95 05/12/20 22:01 91 H 22 92 05/12/20 22:00 91 H 21 100/66 93 05/12/20 21:58 92 H 24 95/64 L 93 05/12/20 21:57 91 H 18 95/64 L 94 05/12/20 21:50 91 H 19 92 05/12/20 21:43 93 H 14 95/69 L 98 05/12/20 21:40 92 H 20 99 05/12/20 21:30 90 20 95/69 L 98 05/12/20 21:20 93 H 16 98 05/12/20 21:10 96 H 18 96 05/12/20 21:00 98 H 20 05/12/20 20:50 98 H 20 97 05/12/20 20:48 97 H 17 96 05/12/20 20:34 98 H 17 103/69 97 05/12/20 20:28 36.6 C 99 H 18 93/71 L 95 Laboratory Results Laboratory Results WBC 8.38 K/uL (4.8-10.8) 05/12/20 21:18 RBC 4.43 M/uL (4.7-6.1) L 05/12/20 21:18 Hgb 14.1 g/dL (14.0-18.0) 05/12/20 21:18 Hct 42.5 % (42-52) 05/12/20 21:18 MCV 95.9 fL (80-100) 05/12/20 21:18 MCH 31.8 pg (25-34) 05/12/20 21:18 MCHC 33.2 g/dL (32-36) 05/12/20 21:18 RDW Std Deviation 49.0 fL (36.4-46.3) H 05/12/20 21:18 RDW Coeff of Dora 13.8 % (11.5-14.5) 05/12/20 21:18 Plt Count 65 K/uL (130-400) L 05/12/20 21:18 MPV 11.9 fL (7.4-10.4) H 05/12/20 21:18 Immature Gran % (Auto) 3.0 % 05/12/20 21:18 Neut % (Auto) 90.6 % 05/12/20 21:18 Lymph % (Auto) 2.4 % 05/12/20 21:18 Knott % (Auto) 3.5 % 05/12/20 21:18 Eos % (Auto) 0.4 % 05/12/20 21:18 Baso % (Auto) 0.1 % 05/12/20 21:18 Neut # (Auto) 7.60 K/uL (1.4-6.5) H 05/12/20 21:18 Lymph # (Auto) 0.20 K/uL (1.2-3.4) L 05/12/20 21:18 Knott # (Auto) 0.29 K/uL (0.11-0.59) 05/12/20 21:18 Eos # (Auto) 0.03 K/uL (0-0.5) 05/12/20 21:18 Baso # (Auto) 0.01 K/uL (0-0.2) 05/12/20 21:18 Immature Gran # (Auto) 0.25 K/uL (0.00-0.02) H 05/12/20 21:18 Absolute Nucleated RBC 0.02 K/uL (0-0) H 05/12/20 21:18 Nucleated RBC % (auto) 0.3 % 05/12/20 21:18 Platelet Estimate Decreased (Normal) L 05/12/20 21:18 Giant Platelets 1+ 05/12/20 21:18 PT 14.6 Seconds (9.0-12.0) H 05/12/20 21:18 INR 1.4 (0.9-1.1) H 05/12/20 21:18 Sodium 143 mmol/L (136-145) 05/12/20 23:11 Potassium 3.7 mmol/L (3.5-5.1) 05/12/20 23:11 Chloride 112 mmol/L (98-107) H 05/12/20 23:11 Carbon Dioxide 20 mmol/L (21-32) L 05/12/20 23:11 Anion Gap 11.0 (3-11) 05/12/20 23:11 BUN 23 mg/dl (7-18) H 05/12/20 23:11 Creatinine 2.33 mg/dl (0.6-1.4) H 05/12/20 23:11 Est Cr Clr Drug Dosing 36.4 ml/min 05/12/20 23:11 Est GFR ( Amer) 32.1 05/12/20 23:11 Est GFR (Non-Af Amer) 27.7 05/12/20 23:11 BUN/Creatinine Ratio 9.9 (10-20) L 05/12/20 23:11 Glucose 129 mg/dl (70-99) H 05/12/20 23:11 Lactate 7.5 mmol/L (0.4-2.0) H* 05/12/20 23:11 Calcium 7.2 mg/dl (8.5-10.1) L 05/12/20 23:11 Magnesium 1.3 mg/dl (1.8-2.4) L 05/12/20 21:18 Total Bilirubin 0.9 mg/dl (0.2-1) 05/12/20 21:18 AST 53 U/L (15-37) H 05/12/20 21:18 ALT 63 U/L (12-78) 05/12/20 21:18 Alkaline Phosphatase 90 U/L (45-117) 05/12/20 21:18 Total Creatine Kinase 164 U/L (39-308) 05/12/20 21:18 Troponin I 2.600 ng/ml (0-0.045) H* 05/12/20 23:11 Total Protein 6.0 gm/dl (6.4-8.2) L 05/12/20 21:18 Albumin 2.6 gm/dl (3.4-5.0) L 05/12/20 21:18 Globulin 3.4 gm/dl (2.5-4.0) 05/12/20 21:18 Albumin/Globulin Ratio 0.8 (0.9-2) L 05/12/20 21:18 Lipase 423 U/L (73-393) H 05/12/20 21:18 TSH 7.890 uIu/ml (0.300-4.500) H 05/12/20 21:18 Ethyl Alcohol mg/dL < 3.0 mg/dl (0-3) 05/12/20 23:11 Lyme Disease IgG Ab Negative (Negative) 05/12/20 22:24 Lyme Disease IgM Ab Negative (Negative) 05/12/20 22:24 Diagnostic Findings Chest x-ray : 1. Portable supine study 2. No evidence of focal pulmonary consolidation. No evidence of overt failure CT head initial read : No acute intracranial findings CT abdomen pelvis: No acute findings. Diverticulosis. No bowel obstruction. Right knee plain x-ray as per my interpretation minimal joint effusion EKG as per my interpretation : Rate 95, NSR, LAD, LAFB, no ischemia
[2020-05-13 00:23] LABS: Partial Thromboplastin Ratio 1.3; Partial Thromboplastin Time 36.9 Seconds (21.0-31.0)
[2020-05-13] MEDS ORDERED: LACTATED RINGER'S 1,000 ML IV SCH ×3 (00:30→06:00)
[2020-05-13] MEDS ORDERED: LORATADINE 10 MG TAB PO PRN (01:53)
[2020-05-13] MEDS ORDERED: NITROGLYCERIN SL 0.4 MG/TAB TAB SL PRN (01:53)
--- NOTE | 2020-05-13 01:55 | Emergency Department Note ---
History of Present Illness General Chief complaint: Fever Stated complaint: FEVER Time Seen by Provider: 05/12/20 20:25 Source: patient and RN notes reviewed Mode of arrival: EMS Limitations: no limitations History of Present Illness Provider complaint: Fever Maximum Pain Intensity: 3 This patient is a 69-year-old male who presents emergency department with complaints of fever and generalized illness. The patient states at the beginning of this month he had a right knee replacement by Dr. Hatfield. He had a fairly usual recovery course and felt as though he was doing well. About a week ago, the patient fell and was transported to [facility]. He states he was kept there for several days. He notes his liver enzymes were elevated as well as his platelet count being low. Patient was treated with antibiotics for several days. Patient notes he took Tylenol prior to arrival. He is complaining of pain in his back which is chronic. Patient denies any chest pain, shortness of breath, cough, abdominal pain, vomiting or diarrhea. He states he had COVID testing performed while admitted at [facility] which was negative. Home Medications Home Medications Medication Instructions Recorded Confirmed Type atorvastatin [Lipitor] 20 mg PO QAM 01/14/20 05/12/20 History loratadine [Claritin] 10 mg PO DAILY PRN 01/14/20 05/12/20 History magnesium 250 mg PO QAM 01/14/20 05/12/20 History multivitamin 1 tab PO QAM 01/14/20 05/12/20 History omeprazole 20 mg PO QAM 01/14/20 05/12/20 History fluticasone propionate [Flonase 2 spray INTRANASAL DAILY PRN 04/21/20 05/12/20 History Allergy Relief] acetaminophen 1,000 mg PO Q8H 05/12/20 05/12/20 History aspirin 81 mg PO QAM 05/12/20 05/12/20 History donepezil 10 mg PO HS 05/12/20 05/12/20 History Allergies Allergy/AdvReac Type Severity Reaction Status Date / Time Iodinated Contrast Media Allergy Unknown Swelling Verified 05/12/20 21:40 celecoxib [From Celebrex] AdvReac Intermediate Nausea/Vomi Verified 05/12/20 21:54 ting oxycodone AdvReac Intermediate Nausea/Vomi Verified 05/12/20 21:54 ting morphine AdvReac Unknown AGITATION;AGGRESSIVE; Verified 05/12/20 21:41 RASH Past Med/Surg History Medical History GERD (gastroesophageal reflux disease) Hyperlipidemia Osteoarthritis Restless leg syndrome Seasonal allergies Surgical History History of colonoscopy History of total left knee replacement Hx of appendectomy Hx of arthroscopic knee surgery X2 ON LEFT; X3 RIGHT Family History Grandfather (Paternal) Family hx of colon cancer Social History Preferred Language: Central African Communication Ability: Effective Master In Chancery Required: No Beliefs That Will Affect Care: None marital status: Current Living Situation: Spouse Feels Safe at Home: Yes Smoking Status: Former smoker Second Hand Exposure: No ; Hx Alcohol Use: No Hx Substance Use: No Review of Systems See HPI for pertinent positives & negatives. and A total of 10 systems reviewed and were otherwise negative Physical Exam Vital Signs Vital Signs - 24 hr 05/12/20 20:28 05/12/20 20:34 05/12/20 20:48 Temperature 36.6 C Temperature Source Oral Pulse Rate 99 H 98 H 97 H Pulse Rate [Apical] Pulse Rate from SpO2 Sensor 96 H 98 H Respiratory Rate 18 17 17 Blood Pressure 93/71 L 103/69 Blood Pressure [Left Arm] Blood Pressure Mean 78 80 Blood Pressure Mean [Left Arm] Pulse Oximetry 95 97 96 Oxygen Delivery Method Room Air Sepsis Recent Fever Within 48 Hours No Sepsis New/Unexplained Change in Mental Status No Sepsis Action Taken by Nursing No Action Required 05/12/20 20:50 05/12/20 21:00 05/12/20 21:10 Temperature Temperature Source Pulse Rate 98 H 98 H 96 H Pulse Rate [Apical] Pulse Rate from SpO2 Sensor 95 H 97 H Respiratory Rate 20 20 18 Blood Pressure Blood Pressure [Left Arm] Blood Pressure Mean Blood Pressure Mean [Left Arm] Pulse Oximetry 97 96 Oxygen Delivery Method Sepsis Recent Fever Within 48 Hours Sepsis New/Unexplained Change in Mental Status Sepsis Action Taken by Nursing 05/12/20 21:20 05/12/20 21:30 05/12/20 21:40 Temperature Temperature Source Pulse Rate 93 H 90 92 H Pulse Rate [Apical] Pulse Rate from SpO2 Sensor 97 H 91 H 92 H Respiratory Rate 16 20 20 Blood Pressure 95/69 L Blood Pressure [Left Arm] Blood Pressure Mean 75 Blood Pressure Mean [Left Arm] Pulse Oximetry 98 98 99 Oxygen Delivery Method Sepsis Recent Fever Within 48 Hours Sepsis New/Unexplained Change in Mental Status Sepsis Action Taken by Nursing 05/12/20 21:43 05/12/20 21:50 05/12/20 21:57 Temperature Temperature Source Pulse Rate 91 H Pulse Rate [Apical] 93 H 91 H Pulse Rate from SpO2 Sensor 91 H Respiratory Rate 14 19 18 Blood Pressure Blood Pressure [Left Arm] 95/69 L 95/64 L Blood Pressure Mean Blood Pressure Mean [Left Arm] 77 74 Pulse Oximetry 98 92 94 Oxygen Delivery Method Room Air Room Air Sepsis Recent Fever Within 48 Hours Sepsis New/Unexplained Change in Mental Status Sepsis Action Taken by Nursing 05/12/20 21:58 05/12/20 22:00 05/12/20 22:01 Temperature Temperature Source Pulse Rate 92 H 91 H 91 H Pulse Rate [Apical] Pulse Rate from SpO2 Sensor 92 H 91 H 91 H Respiratory Rate 24 21 22 Blood Pressure 95/64 L 100/66 Blood Pressure [Left Arm] Blood Pressure Mean 71 70 Blood Pressure Mean [Left Arm] Pulse Oximetry 93 93 92 Oxygen Delivery Method Sepsis Recent Fever Within 48 Hours Sepsis New/Unexplained Change in Mental Status Sepsis Action Taken by Nursing 05/12/20 22:10 05/12/20 22:20 05/12/20 22:30 Temperature Temperature Source Pulse Rate 94 H 90 91 H Pulse Rate [Apical] Pulse Rate from SpO2 Sensor 94 H 91 H Respiratory Rate 20 17 19 Blood Pressure 114/67 Blood Pressure [Left Arm] Blood Pressure Mean 77 Blood Pressure Mean [Left Arm] Pulse Oximetry 95 93 Oxygen Delivery Method Sepsis Recent Fever Within 48 Hours Sepsis New/Unexplained Change in Mental Status Sepsis Action Taken by Nursing 05/12/20 22:31 05/12/20 22:40 05/12/20 22:50 Temperature Temperature Source Pulse Rate 92 H 88 88 Pulse Rate [Apical] Pulse Rate from SpO2 Sensor 91 H 89 89 Respiratory Rate 23 20 21 Blood Pressure Blood Pressure [Left Arm] Blood Pressure Mean Blood Pressure Mean [Left Arm] Pulse Oximetry 93 95 94 Oxygen Delivery Method Sepsis Recent Fever Within 48 Hours Sepsis New/Unexplained Change in Mental Status Sepsis Action Taken by Nursing 05/12/20 23:00 05/12/20 23:01 05/12/20 23:10 Temperature Temperature Source Pulse Rate 89 88 87 Pulse Rate [Apical] Pulse Rate from SpO2 Sensor 88 87 83 Respiratory Rate 22 17 24 Blood Pressure 99/65 L Blood Pressure [Left Arm] Blood Pressure Mean 72 Blood Pressure Mean [Left Arm] Pulse Oximetry 93 90 Oxygen Delivery Method Sepsis Recent Fever Within 48 Hours Sepsis New/Unexplained Change in Mental Status Sepsis Action Taken by Nursing 05/12/20 23:20 05/12/20 23:30 05/12/20 23:40 Temperature Temperature Source Pulse Rate 87 91 H 89 Pulse Rate [Apical] Pulse Rate from SpO2 Sensor 86 92 H 89 Respiratory Rate 22 20 24 Blood Pressure Blood Pressure [Left Arm] Blood Pressure Mean Blood Pressure Mean [Left Arm] Pulse Oximetry 97 97 96 Oxygen Delivery Method Sepsis Recent Fever Within 48 Hours Sepsis New/Unexplained Change in Mental Status Sepsis Action Taken by Nursing 05/13/20 00:00 05/13/20 00:01 05/13/20 00:10 Temperature Temperature Source Pulse Rate 88 88 83 Pulse Rate [Apical] Pulse Rate from SpO2 Sensor 85 Respiratory Rate 13 15 Blood Pressure 86/58 L Blood Pressure [Left Arm] Blood Pressure Mean 63 Blood Pressure Mean [Left Arm] Pulse Oximetry 95 Oxygen Delivery Method Sepsis Recent Fever Within 48 Hours Sepsis New/Unexplained Change in Mental Status Sepsis Action Taken by Nursing Vital signs reviewed. General: Generally ill-appearing 69-year-old male, slightly diaphoretic. HEENT: No scleral icterus, PERRLA, neck supple. Atraumatic. Cardiovascular: Regular rate and rhythm, no extra sounds. Pulmonary: Clear to auscultation bilaterally, normal work of breathing. Abdomen: Soft, nontender, nondistended, positive bowel sounds. Musculoskeletal: Atraumatic, no peripheral edema. Postsurgical changes noted to the right knee without surrounding erythema or significant swelling. Neurologic: Patient awake alert and oriented x 3 Skin: Warm, dry, no rash Course Administered Medications Magnesium Sulfate/Dextrose (Magnesium Sulfate / D5w) 1 gm in 100 mls @ 50 mls/hr IV Q2H LADY Stop: 05/13/20 04:59 Last Infusion: 05/13/20 01:34 Dose: 0 mls/hr Documented by: [id number] Admin: 05/12/20 23:34 Dose: 50 mls/hr Documented by: [id number] Discontinued Medications Aspirin (Aspirin Chew) 324 mg PO NOW STA Stop: 05/12/20 22:03 Last Admin: 05/12/20 22:19 Dose: 324 mg Documented by: [id number] Hydromorphone HCl (Dilaudid) 0.5 mg IV NOW STA Stop: 05/12/20 21:25 Last Admin: 05/12/20 21:37 Dose: 0.5 mg Documented by: [id number] Sodium Chloride (Nss 1000ml) 1,000 mls @ 125 mls/hr IV .Q8H LADY Stop: 05/13/20 04:29 Last Infusion: 05/13/20 00:46 Dose: 0 mls/hr Documented by: [id number] Admin: 05/12/20 21:13 Dose: 125 mls/hr Documented by: [id number] Sodium Chloride (Nss 1000ml) 500 mls @ 999 mls/hr IV .Q31M ONE Stop: 05/12/20 21:11 Last Infusion: 05/12/20 21:56 Dose: 0 mls/hr Documented by: [id number] Admin: 05/12/20 21:13 Dose: 999 mls/hr Documented by: [id number] Doxycycline Hyclate 100 mg/ (Dextrose) 110 mls @ 50 mls/hr IV NOW STA Stop: 05/12/20 22:52 Last Infusion: 05/13/20 00:47 Dose: 0 mls/hr Documented by: [id number] Admin: 05/12/20 21:38 Dose: 50 mls/hr Documented by: [id number] Ceftriaxone Sodium (Rocephin) 2,000 mg in 70 mls @ 140 mls/hr IV NOW STA Stop: 05/12/20 22:29 Last Infusion: 05/12/20 23:05 Dose: 0 mls/hr Documented by: [id number] Admin: 05/12/20 22:19 Dose: 140 mls/hr Documented by: [id number] Sodium Chloride (Nss 1000ml) 1,000 mls @ 999 mls/hr IV .Q1H1M ONE Stop: 05/12/20 23:08 Last Infusion: 05/12/20 23:50 Dose: 0 mls/hr Documented by: [id number] Admin: 05/12/20 22:19 Dose: 999 mls/hr Documented by: [id number] Parenteral Electrolytes (Normosol-R) 1,000 mls @ 999 mls/hr IV .Q1H1M ONE Stop: 05/13/20 00:00 Last Admin: 05/13/20 00:36 Dose: 999 mls/hr Documented by: [id number] Lactated Ringer's (Lr) 1,000 mls @ 200 mls/hr IV .Q5H LADY Stop: 06/12/20 00:00 Last Admin: 05/13/20 00:03 Dose: 200 mls/hr Documented by: [id number] Daptomycin 450 mg/ Syringe 9 mls @ 0 mls/min IV NOW STA; Protocol Stop: 05/12/20 23:04 Last Admin: 05/12/20 23:26 Dose: 4.5 mls/min Documented by: [id number] Ondansetron HCl (Zofran) 4 mg IV NOW STA Stop: 05/12/20 20:30 Last Admin: 05/12/20 21:16 Dose: 4 mg Documented by: [id number] Critical Care Time Critical Care Time: Yes I have personally spent greater than 60 minutes of critical care time in the direct management of this patient. This includes bedside care, interpretation of diagnostic studies, and testing, discussion with consultants, patient, and family members, and other required patient management activities. This 60 minutes is in excess of all separately billable procedures. Medical Decision Making Differential Diagnosis Differential diagnosis: Etiologies such as viral syndrome, otitis, pharyngitis, pneumonia, influenza, meningitis, urinary tract infection, septic arthritis, soft tissue infectious process, intra-abdominal process, sepsis, bacteremia, as well as others were entertained. Medical Records Attestation: I reviewed the patient's medical records. (Cristóbal Reyes) Home Medications Current Medication List: was personally reviewed by me Laboratory Data Attestation: I reviewed the patient's lab results. Result diagrams: 05/12/20 21:18 05/12/20 23:11 Lab Results 05/12/20 05/12/20 05/12/20 Range/Units 21:18 21:18 21:18 WBC 8.38 (4.8-10.8) K/uL RBC 4.43 L (4.7-6.1) M/uL Hgb 14.1 (14.0-18.0) g/dL Hct 42.5 (42-52) % MCV 95.9 (80-100) fL MCH 31.8 (25-34) pg MCHC 33.2 (32-36) g/dL RDW Std Deviation 49.0 H (36.4-46.3) fL RDW Coeff of Dora 13.8 (11.5-14.5) % Plt Count 65 L (130-400) K/uL MPV 11.9 H (7.4-10.4) fL Immature Gran % (Auto) 3.0 % Neut % (Auto) 90.6 % Lymph % (Auto) 2.4 % Dickenson % (Auto) 3.5 % Eos % (Auto) 0.4 % Baso % (Auto) 0.1 % Neut # (Auto) 7.60 H (1.4-6.5) K/uL Lymph # (Auto) 0.20 L (1.2-3.4) K/uL Dickenson # (Auto) 0.29 (0.11-0.59) K/uL Eos # (Auto) 0.03 (0-0.5) K/uL Baso # (Auto) 0.01 (0-0.2) K/uL Immature Gran # (Auto) 0.25 H (0.00-0.02) K/uL Absolute Nucleated RBC 0.02 H (0-0) K/uL Nucleated RBC % (auto) 0.3 % Platelet Estimate Decreased L (Normal) Giant Platelets 1+ PT 14.6 H (9.0-12.0) Seconds INR 1.4 H (0.9-1.1) APTT (21.0-31.0) Seconds PTT Ratio Sodium 141 (136-145) mmol/L Potassium 3.6 (3.5-5.1) mmol/L Chloride 109 H (98-107) mmol/L Carbon Dioxide 17 L (21-32) mmol/L Anion Gap 14.0 H (3-11) BUN 18 (7-18) mg/dl Creatinine 2.09 H (0.6-1.4) mg/dl Est Cr Clr Drug Dosing 40.6 ml/min Est GFR ( Amer) 36.6 Est GFR (Non-Af Amer) 31.6 BUN/Creatinine Ratio 8.7 L (10-20) Glucose 78 (70-99) mg/dl Lactate (0.4-2.0) mmol/L Calcium 8.4 L (8.5-10.1) mg/dl Magnesium 1.3 L (1.8-2.4) mg/dl Total Bilirubin 0.9 (0.2-1) mg/dl AST 53 H (15-37) U/L ALT 63 (12-78) U/L Alkaline Phosphatase 90 (45-117) U/L Total Creatine Kinase 164 (39-308) U/L Troponin I 2.330 H* (0-0.045) ng/ml Total Protein 6.0 L (6.4-8.2) gm/dl Albumin 2.6 L (3.4-5.0) gm/dl Globulin 3.4 (2.5-4.0) gm/dl Albumin/Globulin Ratio 0.8 L (0.9-2) Lipase 423 H (73-393) U/L TSH 7.890 H (0.300-4.500) uIu/ml Ethyl Alcohol mg/dL (0-3) mg/dl Lyme Disease IgG Ab (Negative) Lyme Disease IgM Ab (Negative) Blood Type Antibody Screen 05/12/20 05/12/20 05/12/20 Range/Units 21:18 22:24 23:11 WBC (4.8-10.8) K/uL RBC (4.7-6.1) M/uL Hgb (14.0-18.0) g/dL Hct (42-52) % MCV (80-100) fL MCH (25-34) pg MCHC (32-36) g/dL RDW Std Deviation (36.4-46.3) fL RDW Coeff of Dora (11.5-14.5) % Plt Count (130-400) K/uL MPV (7.4-10.4) fL Immature Gran % (Auto) % Neut % (Auto) % Lymph % (Auto) % Dickenson % (Auto) % Eos % (Auto) % Baso % (Auto) % Neut # (Auto) (1.4-6.5) K/uL Lymph # (Auto) (1.2-3.4) K/uL Dickenson # (Auto) (0.11-0.59) K/uL Eos # (Auto) (0-0.5) K/uL Baso # (Auto) (0-0.2) K/uL Immature Gran # (Auto) (0.00-0.02) K/uL Absolute Nucleated RBC (0-0) K/uL Nucleated RBC % (auto) % Platelet Estimate (Normal) Giant Platelets PT (9.0-12.0) Seconds INR (0.9-1.1) APTT (21.0-31.0) Seconds PTT Ratio Sodium (136-145) mmol/L Potassium (3.5-5.1) mmol/L Chloride (98-107) mmol/L Carbon Dioxide (21-32) mmol/L Anion Gap (3-11) BUN (7-18) mg/dl Creatinine (0.6-1.4) mg/dl Est Cr Clr Drug Dosing ml/min Est GFR ( Amer) Est GFR (Non-Af Amer) BUN/Creatinine Ratio (10-20) Glucose (70-99) mg/dl Lactate 9.8 H* (0.4-2.0) mmol/L Calcium (8.5-10.1) mg/dl Magnesium (1.8-2.4) mg/dl Total Bilirubin (0.2-1) mg/dl AST (15-37) U/L ALT (12-78) U/L Alkaline Phosphatase (45-117) U/L Total Creatine Kinase (39-308) U/L Troponin I (0-0.045) ng/ml Total Protein (6.4-8.2) gm/dl Albumin (3.4-5.0) gm/dl Globulin (2.5-4.0) gm/dl Albumin/Globulin Ratio (0.9-2) Lipase (73-393) U/L TSH (0.300-4.500) uIu/ml Ethyl Alcohol mg/dL (0-3) mg/dl Lyme Disease IgG Ab Negative (Negative) Lyme Disease IgM Ab Negative (Negative) Blood Type O Positive Antibody Screen NEGATIVE 05/12/20 05/12/20 05/12/20 Range/Units 23:11 23:11 23:11 WBC (4.8-10.8) K/uL RBC (4.7-6.1) M/uL Hgb (14.0-18.0) g/dL Hct (42-52) % MCV (80-100) fL MCH (25-34) pg MCHC (32-36) g/dL RDW Std Deviation (36.4-46.3) fL RDW Coeff of Dora (11.5-14.5) % Plt Count (130-400) K/uL MPV (7.4-10.4) fL Immature Gran % (Auto) % Neut % (Auto) % Lymph % (Auto) % Dickenson % (Auto) % Eos % (Auto) % Baso % (Auto) % Neut # (Auto) (1.4-6.5) K/uL Lymph # (Auto) (1.2-3.4) K/uL Dickenson # (Auto) (0.11-0.59) K/uL Eos # (Auto) (0-0.5) K/uL Baso # (Auto) (0-0.2) K/uL Immature Gran # (Auto) (0.00-0.02) K/uL Absolute Nucleated RBC (0-0) K/uL Nucleated RBC % (auto) % Platelet Estimate (Normal) Giant Platelets PT (9.0-12.0) Seconds INR (0.9-1.1) APTT (21.0-31.0) Seconds PTT Ratio Sodium 143 (136-145) mmol/L Potassium 3.7 (3.5-5.1) mmol/L Chloride 112 H (98-107) mmol/L Carbon Dioxide 20 L (21-32) mmol/L Anion Gap 11.0 (3-11) BUN 23 H (7-18) mg/dl Creatinine 2.33 H (0.6-1.4) mg/dl Est Cr Clr Drug Dosing 36.4 ml/min Est GFR ( Amer) 32.1 Est GFR (Non-Af Amer) 27.7 BUN/Creatinine Ratio 9.9 L (10-20) Glucose 129 H (70-99) mg/dl Lactate 7.5 H* (0.4-2.0) mmol/L Calcium 7.2 L (8.5-10.1) mg/dl Magnesium (1.8-2.4) mg/dl Total Bilirubin (0.2-1) mg/dl AST (15-37) U/L ALT (12-78) U/L Alkaline Phosphatase (45-117) U/L Total Creatine Kinase (39-308) U/L Troponin I 2.600 H* (0-0.045) ng/ml Total Protein (6.4-8.2) gm/dl Albumin 2.0 L (3.4-5.0) gm/dl Globulin (2.5-4.0) gm/dl Albumin/Globulin Ratio (0.9-2) Lipase (73-393) U/L TSH (0.300-4.500) uIu/ml Ethyl Alcohol mg/dL < 3.0 (0-3) mg/dl Lyme Disease IgG Ab (Negative) Lyme Disease IgM Ab (Negative) Blood Type Antibody Screen 05/12/20 Range/Units 23:11 WBC (4.8-10.8) K/uL RBC (4.7-6.1) M/uL Hgb (14.0-18.0) g/dL Hct (42-52) % MCV (80-100) fL MCH (25-34) pg MCHC (32-36) g/dL RDW Std Deviation (36.4-46.3) fL RDW Coeff of Dora (11.5-14.5) % Plt Count (130-400) K/uL MPV (7.4-10.4) fL Immature Gran % (Auto) % Neut % (Auto) % Lymph % (Auto) % Dickenson % (Auto) % Eos % (Auto) % Baso % (Auto) % Neut # (Auto) (1.4-6.5) K/uL Lymph # (Auto) (1.2-3.4) K/uL Dickenson # (Auto) (0.11-0.59) K/uL Eos # (Auto) (0-0.5) K/uL Baso # (Auto) (0-0.2) K/uL Immature Gran # (Auto) (0.00-0.02) K/uL Absolute Nucleated RBC (0-0) K/uL Nucleated RBC % (auto) % Platelet Estimate (Normal) Giant Platelets PT (9.0-12.0) Seconds INR (0.9-1.1) APTT 36.9 H (21.0-31.0) Seconds PTT Ratio 1.3 Sodium (136-145) mmol/L Potassium (3.5-5.1) mmol/L Chloride (98-107) mmol/L Carbon Dioxide (21-32) mmol/L Anion Gap (3-11) BUN (7-18) mg/dl Creatinine (0.6-1.4) mg/dl Est Cr Clr Drug Dosing ml/min Est GFR ( Amer) Est GFR (Non-Af Amer) BUN/Creatinine Ratio (10-20) Glucose (70-99) mg/dl Lactate (0.4-2.0) mmol/L Calcium (8.5-10.1) mg/dl Magnesium (1.8-2.4) mg/dl Total Bilirubin (0.2-1) mg/dl AST (15-37) U/L ALT (12-78) U/L Alkaline Phosphatase (45-117) U/L Total Creatine Kinase (39-308) U/L Troponin I (0-0.045) ng/ml Total Protein (6.4-8.2) gm/dl Albumin (3.4-5.0) gm/dl Globulin (2.5-4.0) gm/dl Albumin/Globulin Ratio (0.9-2) Lipase (73-393) U/L TSH (0.300-4.500) uIu/ml Ethyl Alcohol mg/dL (0-3) mg/dl Lyme Disease IgG Ab (Negative) Lyme Disease IgM Ab (Negative) Blood Type Antibody Screen Imaging Data Radiologist's Impression: XR chest 1V portable CLINICAL HISTORY: fever COMPARISON STUDY: 01/20/2020 FINDINGS: The examination was obtained in a supine fashion. The heart is the upper limits of normal in size. There is no focal pulmonary consolidation. There is no overt failure. There are no pleural effusions.[ IMPRESSION: 1. Portable supine study 2. No evidence of focal pulmonary consolidation. No evidence of overt failure ACT 112: Negative or not required by law. Electronically signed by: Danny Musa M.D. 05/12/2020 8:49 PM Dictated: 05/12/202047 Transcribed: 05/12/202047 ECG Data Attestation: I personally reviewed and interpreted this ECG as follows: Indication: + weakness Rate (beats per minute): 96 Rhythm: + normal sinus ECG Intervals/blocks: + Normal QRS and + Normal QT-c ECG ST segments: + Normal ST segments ECG Findings: no PACs and no PVCs Blood Pressure Blood Pressure Findings: Elevated blood pressure Blood Pressure Disposition: further management by hospitalist MDM Narrative This patient was evaluated and appeared to be in some discomfort. An order for cardiac monitoring was placed and the patient is found to be in a normal sinus rhythm at 89 bpm. IV access was obtained and laboratory work was drawn. Given the patient's account of his hospitalization at [facility], records were obtained through [employer]. The patient had a pretty significant thrombocytopenia, worsening during his stay. Patient's baseline is about 150,000 and he was discharged at 26,000. He did receive IV Zosyn x2 days. Antibiotics were discontinued when blood cultures were negative. He apparently had some elevation of the LFTs that was evaluated and found not to be obstructive in nature. Patient again had a spike in temperature tonight. He admits that he is in "outdoorsy desean" and hunts throughout [facility]. Patient is a concern for anaplasmosis. He was given IV doxycycline. Laboratory work reveals a normal WBC, markedly elevated lactate at 9 and an elevated troponin at 2.6. Patient was given 324 mg of aspirin to chew. IV ceftriaxone was added. IV fluids were continued. EKG confirms no ST elevation. Patient denies any chest pain. Patient will be evaluated by the hospitalist service for further evaluation and management. He is aware of this plan and agrees. Impression & Plan Acute febrile illness, Thrombocytopenia, Elevated troponin, Elevated lactic acid level Discharge Plan Visit Data *Final* Discharge Date/Time: 05/13/20 01:18 Chief Complaint: Fever Stated Complaint: FEVER ED Provider: Shahla Weir Discharge Problem: Acute febrile illness, Thrombocytopenia, Elevated troponin, Elevated lactic acid level Patient Disposition: Admitted As Inpatient Discharge Instructions Interventions: ED Discharge Assessment Last Done: 05/13/20 01:18
[2020-05-13] MEDS ORDERED: CEFEPIME CONSULT ACTIVE PRN (01:57)
[2020-05-13] MEDS: TRAMADOL HCL 50 MG TABLET PO PRN ×2 (03:24→20:10)
[2020-05-13] MEDS: MAGNESIUM SULFATE / D5W 1 GM/100 ML BAG IV SCH ×2 (03:24→05:25)
[2020-05-13] MEDS: CEFEPIME 2,000 MG in SYRINGE 7.5 ML IV SCH ×2 (03:25→13:00)
[2020-05-13 04:00] LABS: Hematocrit (blood only) 35.1 % (42-52); Hemoglobin 11.9 g/dL (14.0-18.0); Mean Corpuscular Hemoglobin 31.6 pg (25-34); Mean Corpuscular Hgb Conc 33.9 g/dL (32-36); Mean Corpuscular Volume 93.4 fL (80-100); Mean Platelet Volume 12.1 fL (7.4-10.4); Platelet Count 72 K/uL (130-400); RDW Coefficient of Variation 13.9 % (11.5-14.5); RDW Standard Deviation 47.7 fL (36.4-46.3); Red Blood Count 3.76 M/uL (4.7-6.1); White Blood Count 18.64 K/uL (4.8-10.8)
[2020-05-13 04:31] LABS: Albumin Globulin Ratio 0.6 (0.9-2); Albumin Level 2.1 gm/dl (3.4-5.0); Bilirubin,Total 0.6 mg/dl (0.2-1); Calcium 7.1 mg/dl (8.5-10.1); Est GFR (African American) 32.9; Est GFR (Non-African American) 28.4; Globulin 3.3 gm/dl (2.5-4.0); Total Protein 5.4 gm/dl (6.4-8.2); Troponin I 2.61 ng/ml (0-0.045)
[2020-05-13 04:46] LABS: Basophils # (auto) 0.01 K/uL (0-0.2); Basophils % (auto) 0.1 %; Echinocytes 1+; Eosinophils # (auto) 0.03 K/uL (0-0.5); Eosinophils % (auto) 0.2 %; Giant Platelets 1+; Immature Granulocytes # (auto) 0.27 K/uL (0.00-0.02); Immature Granulocytes % (auto) 1.4 %; Lymphocytes # (auto) 0.23 K/uL (1.2-3.4); Lymphocytes % (auto) 1.2 %; Monocytes # (auto) 0.98 K/uL (0.11-0.59); Monocytes % (auto) 5.3 %; Neutrophils # (auto) 17.12 K/uL (1.4-6.5); Neutrophils % (auto) 91.8 %; Toxic Vacuolation 2+
[2020-05-13 04:55] LABS: Partial Thromboplastin Ratio 1.2; Partial Thromboplastin Time 34.7 Seconds (21.0-31.0)
[2020-05-13] MEDS ORDERED: NORMOSOL-R 1,000 ML IV ONE (04:57)
[2020-05-13 06:20] LABS: Estimated Average Glucose 126 mg/dl
[2020-05-13] MEDS: SODIUM CHLORIDE 0.9% 1000ML 1,000 ML IV SCH ×3 (06:41→20:11)
--- NOTE | 2020-05-13 07:12 | XRay Report ---
XR knee RT 1 or 2V routine CLINICAL HISTORY: R knee pain pain COMPARISON: 04/28/2020 DISCUSSION: Anatomic alignment post total right knee arthroplasty. Possible small joint effusion. No lytic or blastic process. There is no evidence for soft tissue swelling. IMPRESSION: 1. No acute abnormality post total right knee arthroplasty. 2. Potential small joint effusion. ACT 112: Negative or not required by law. The above report was generated using voice recognition software. It may contain grammatical, syntax or spelling errors. Electronically signed by: Cayetano Minaya M.D. 05/13/2020 7:11 AM
--- NOTE | 2020-05-13 07:17 | Communication Note ---
Date of Service: May 13, 2020 Made aware by RN of large volume loose stool, nonbloody. Check C. difficile Hold Aricept for now.
--- NOTE | 2020-05-13 07:19 | CT Scan Report ---
HEAD CT NONCONTRAST CT DOSE: 687.98 mGy.cm HISTORY: Headache. chavez TECHNIQUE: Multiaxial CT images of the head were performed without the use of intravenous contrast. A utomated exposure control was utilized for this study. A dose lowering technique was utilized adheri ng to the principles of ALARA. Comparison: None. Findings: The paranasal sinuses and mastoid air cells are clear. The calvarium and skull base are int act. The ventricles and sulci are within normal limits. There is no mass, hematoma, midline shift, or acute infarct. Impression: No acute intracranial abnormality. ACT 112: Negative or not required by law. Electronically signed by: Dorian Davenport M.D. 05/13/2020 7:17 AM
[2020-05-13] MEDS: MULTIVITAMIN TAB PO SCH (08:08)
--- NOTE | 2020-05-13 08:09 | CT Scan Report ---
CT SCAN OF THE ABDOMEN AND PELVIS WITHOUT CONTRAST CLINICAL HISTORY: abd pain COMPARISON STUDY: No previous studies for comparison. TECHNIQUE: CT scan of the abdomen and pelvis was performed from the lung bases to the proximal femurs . Images are reviewed in the axial, sagittal, and coronal planes. IV contrast was not administered fo r this examination. A dose lowering technique was utilized adhering to the principles of ALARA. CT DOSE: 676.60 mGy.cm FINDINGS: Lower chest: There is respiratory motion artifact. There are mild dependent atelectatic changes. Liver: The unenhanced liver is normal in size, contour, and attenuation. There is no intrahepatic emelina iary ductal dilatation. Gallbladder: Unremarkable. Spleen: Normal in size and attenuation. Pancreas: Unremarkable. Adrenal glands: Unremarkable. Kidneys: No renal, ureteral, or bladder calculi are visualized. There is left renal cortical scarring . Bowel: There is a fluid-filled stomach. There is a small amount of fluid in the distal esophagus. The re are fluid-filled colonic loops. Clinical correlation regards to a diarrheal state is recommended. There is colonic diverticulosis. There is no evidence of acute diverticulitis. There is no evidence o f acute appendicitis. Peritoneum: There is no intraperitoneal free air or abdominal ascites. Vasculature: The abdominal aorta is normal in course and caliber. Adenopathy: None. Pelvic viscera: The bladder, and pelvic viscera are unremarkable. Skeletal structures: No destructive osseous lesions are seen. IMPRESSION: 1. No evidence of bowel obstruction. No evidence of free air 2. Diverticulosis. No evidence of acute diverticulitis 3. No evidence of acute appendicitis 4. Fluid-filled bowel loops. This is a nonspecific finding which can be seen in diarrheal states. ACT 112: Negative or not required by law. Electronically signed by: Danny Musa M.D. 05/13/2020 8:08 AM
[2020-05-13] MEDS ORDERED: PANTOprazole 40 MG TAB PO SCH ×2 (09:00→21:00)
[2020-05-13 09:05] LABS: BUN Creatinine Ratio 14.2 (10-20); Calcium 7.3 mg/dl (8.5-10.1); Creatinine Clr Calc Pharmacy 38.4 ml/min; Est GFR (African American) 39.6; Est GFR (Non-African American) 34.1; Potassium 4.3 mmol/L (3.5-5.1)
[2020-05-13 09:13] LABS: Troponin I 1.89 ng/ml (0-0.045)
[2020-05-13] MEDS ORDERED: LIDOCAINE 2% JELLY 5 ML TUBE ONE (09:23)
[2020-05-13 10:08] LABS: Appearance Urine Turbid (Clear); Bilirubin Urine Negative (Negative); Blood Urine Negative (Negative); Color Urine Dark Yellow; Epithelial Cell Urine Auto >30 /lpf (0-5); Glucose Urine UA Negative (Negative); Ketones Urine Trace (Negative); Leukocyte Esterase Urine Negative (Negative); Nitrite Urine Negative (Negative); Protein Urine 1+ (Negative); RBC Urine Automated 0-4 /hpf (0-4); Specific Gravity Urine 1.026 (1.000-1.030); Urobilinogen Urine Negative (Negative)
[2020-05-13 10:35] LABS: Bacteria Urine Automated 1+ (Negative)
[2020-05-13 10:36] LABS: Amorphous Sediment Urine Present (None Prsent)
[2020-05-13] MEDS: DOXYCYCLINE HYCLATE 100 MG in DEXTROSE 5% 100 ML IV SCH (12:58)
--- NOTE | 2020-05-13 13:21 | Electrocardiogram Report ---
Test Reason : Blood Pressure : / mmHG Vent. Rate : 096 BPM Atrial Rate : 096 BPM P-R Int : 172 ms QRS Dur : 074 ms QT Int : 352 ms P-R-T Axes : 053 -17 046 degrees QTc Int : 444 ms Normal sinus rhythm Normal ECG When compared with ECG of 20-JAN-2020 11:13, NE interval has decreased Vent. rate has increased BY 32 BPM Confirmed by Prieto Galeano ([id number]) on 05/13/2020 1:21:37 PM Referred By: REFERRED SELF Confirmed By:Prieto Galeano
--- NOTE | 2020-05-13 14:03 | Orthopedic Consultation ---
Date of Consultation May 13, 2020 Assessment & Plan (1) History of total right knee replacement: Postoperative day 15 Presentation of right total knee consistent with acute postoperative findings, low suspicion for periprosthetic joint infection at this time, if increasing pain limited range of motion, increasing swelling and/or drainage and erythema would consider aspiration. Patient may weight-bear as tolerated on right lower extremity, participate in physical therapy and Occupational Therapy when medically stabilized, important to ice and elevate right lower extremity, maintain full extension while laying in bed with the aid of a rolled towel under the heel. We will follow with you. Thank you for the consultation History of Present Illness Reason for Consultation: 2 weeks postop right total knee arthroplasty Attending Physician: Liam Bhakta MD History of Present Illness The patient is a 69-year-old male with recent surgical history for right total knee arthroplasty performed on 04/28/[address] Hatfield. Reports 1 week after surgery he sustained a fall at home and was seen at [facility] [address] and subsequently admitted secondary to lab abnormalities and feeling ill. Patient reports being tested for COVID-19 at this time which was negative. Patient reports fevers and was seen at [facility] emergency department subsequently admitted for thrombocytopenia, sepsis, elevated troponin. Patient reports knee has slowly been feeling better since his surgery. Denies any trau ma to the right knee. We were asked to evaluate the patient due to recent surgical history. Allergies Allergy/AdvReac Type Severity Reaction Status Date / Time Iodinated Contrast Media Allergy Unknown Swelling Verified 05/12/20 21:40 celecoxib [From Celebrex] AdvReac Intermediate Nausea/Vomi Verified 05/12/20 21:54 ting oxycodone AdvReac Intermediate Nausea/Vomi Verified 05/12/20 21:54 ting morphine AdvReac Unknown AGITATION;AGGRESSIVE; Verified 05/12/20 21:41 RASH Home Medications Home Medications Medication Instructions Recorded Confirmed Type atorvastatin [Lipitor] 20 mg PO QAM 01/14/20 05/12/20 History loratadine [Claritin] 10 mg PO DAILY PRN 01/14/20 05/12/20 History magnesium 250 mg PO QAM 01/14/20 05/12/20 History multivitamin 1 tab PO QAM 01/14/20 05/12/20 History omeprazole 20 mg PO QAM 01/14/20 05/12/20 History fluticasone propionate [Flonase 2 spray INTRANASAL DAILY PRN 04/21/20 05/12/20 History Allergy Relief] acetaminophen 1,000 mg PO Q8H 05/12/20 05/12/20 History aspirin 81 mg PO QAM 05/12/20 05/12/20 History donepezil 10 mg PO HS 05/12/20 05/12/20 History Patient History Medical History GERD (gastroesophageal reflux disease) Hyperlipidemia Osteoarthritis Restless leg syndrome Seasonal allergies Surgical History History of colonoscopy History of total left knee replacement Hx of appendectomy Hx of arthroscopic knee surgery X2 ON LEFT; X3 RIGHT Family History Grandfather (Paternal) Family hx of colon cancer Social History Preferred Language: [place] Communication Ability: Effective Permastone Applicator Required: No Beliefs That Will Affect Care: None marital status: Current Living Situation: Spouse Other Information That Helps Us Care for You: No Feels Safe at Home: Yes Safety Concerns: Feels Safe At This Time Smoking Status: Former smoker Second Hand Exposure: No ; Hx Alcohol Use: No Hx Substance Use: No Review of Systems Review of Systems: All systems reviewed & are unremarkable except as noted in HPI & below Constitutional: as per Subjective / HPI Physical Exam Physical Exam: RLE NVSI +EHL/FHL/TA/GS SILT grossly, +2 DP pulse, compartments soft NT, moderate effusion, moderate edema, appropriate for postoperative knee, range of motion 10 to 95 degrees of flexion. Constitutional: WD/WN, vitals as above Results & Data ([facility]) Vital Signs (Past 12 Hours) Vital Signs Temp Pulse Pulse Resp BP Pulse Ox 05/13/20 11:08 36.6 C 90 18 91/58 L 93 05/13/20 08:00 36.5 C 89 18 103/59 L 98 05/13/20 03:28 36.5 C 93 H 18 100/64 97
[2020-05-13] MEDS: AZITHROMYCIN 500 MG in DEXTROSE 5% 250 ML IV SCH (14:15)
[2020-05-13] MEDS: ATOVAQUONE 750 MG/5 ML UDC PO SCH ×2 (14:15→16:56)
[2020-05-13] MEDS ORDERED: ALUMINUM/MAGNESIUM/SIMETH (MAALOX MAX) 30 ML UDC PO PRN (14:48)
[2020-05-13] MEDS ORDERED: FAMOTIDINE 20MG IV PUSH 20 MG/5 ML SYR IV ONE (15:15)
--- NOTE | 2020-05-13 16:11 | Electrocardiogram Report ---
Test Reason : Blood Pressure : / mmHG Vent. Rate : 092 BPM Atrial Rate : 092 BPM P-R Int : 212 ms QRS Dur : 084 ms QT Int : 404 ms P-R-T Axes : 061 013 040 degrees QTc Int : 499 ms Sinus rhythm with 1st degree A-V block Nonspecific T wave abnormality Prolonged QT Abnormal ECG When compared with ECG of 12-MAY-2020 21:08, PA interval has increased Nonspecific T wave abnormality now evident in Inferior leads QT has lengthened Confirmed by Prieto Galeano ([id number]) on 05/13/2020 4:11:05 PM Referred By: REFERRED SELF Confirmed By:Prieto Galeano
[2020-05-13 19:46] LABS: Hematocrit (blood only) 30.4 % (42-52); Hemoglobin 10.6 g/dL (14.0-18.0); Mean Corpuscular Hgb Conc 34.9 g/dL (32-36); Mean Corpuscular Volume 91.8 fL (80-100); RDW Coefficient of Variation 14.3 % (11.5-14.5); RDW Standard Deviation 47.8 fL (36.4-46.3); Red Blood Count 3.31 M/uL (4.7-6.1); White Blood Count 22.48 K/uL (4.8-10.8)
[2020-05-13 19:49] LABS: Mean Platelet Volume 11.6 fL (7.4-10.4); Platelet Count 73 K/uL (130-400)
[2020-05-13 20:03] LABS: BUN Creatinine Ratio 17.7 (10-20); Calcium 7.4 mg/dl (8.5-10.1); Creatinine Clr Calc Pharmacy 44.8 ml/min; Est GFR (African American) 47.7; Est GFR (Non-African American) 41.1; Potassium 4.1 mmol/L (3.5-5.1)
[2020-05-13 20:10] LABS: Troponin I 0.836 ng/ml (0-0.045)
[2020-05-13 20:12] LABS: Basophils # (auto) 0.01 K/uL (0-0.2); Eosinophils % (auto) 1.3 %; Immature Granulocytes # (auto) 1.83 K/uL (0.00-0.02); Immature Granulocytes % (auto) 8.1 %; Lymphocytes # (auto) 0.94 K/uL (1.2-3.4); Lymphocytes % (auto) 4.2 %; Monocytes % (auto) 3.1 %; Neutrophils % (auto) 83.3 %
[2020-05-13] MEDS ORDERED: DONEPEZIL HCL 10 MG TAB PO SCH (21:00)
--- NOTE | 2020-05-13 21:26 | Hospitalist Progress Note ---
Date of Service May 13, 2020 Assessment & Plan (1) Severe sepsis: Probable severe sepsis, present on admission, with hypotension, tachycardia, hyperlactemia, JAMES. Initial WBC 8380, but repeat 18,640. Initial lactate 9.8. Blood cultures obtained. Received broad-spectrum antibiotic coverage with daptomycin and ceftriaxone; subsequently received daptomycin and cefepime. Received fluid resuscitation with several liters of crystalloid. Source of infection not apparent. No apparent pneumonia per history, exam, or imaging. UA showed 10-30 WBC's and 1+ bacteria, but negative nitrites and negative leukocyte esterase. S/P recent right TKA, but no apparent infection. Experiencing diarrhea. Stools negative for C diff today as well as last week at [facility]. Stool panel for multiple enteric pathogens also negative last week. 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 Consider tick-borne illness. Lyme screen negative. Peripheral smear negative for parasites. PCR's for anaplasmosis, ehrlichiosis, babesiosis ordered. Continue daptomycin and cefepime pending culture results. Start doxycycline to cover Anaplasma and Ehrlichia. Start azithromycin and atovaquone for possible babesiosis. (2) Elevated lactic acid level: Serum lactate markedly elevated at time of admission, improving with IV fluids and antibiotics. Suspected sepsis at outlined above. No apparent bowel ischemia / infarct per CT imaging. Follow. (3) Elevated troponin: Serum troponin as high as 2.610. No anginal symptoms. No significant EKG changes. Echo showed normal left ventricular wall motion and systolic function. Elevated troponin probably secondary to sepsis. Doubt myocardial infarction. (4) Thrombocytopenia: Platelet count at time of admission = 65,000. Thrombocytopenia probably due to infection, perhaps tick-borne illness. Follow. (5) Acute kidney injury: Serum creatinine at time of admission 2.09 compared to baseline of around 1.0. Acute kidney injury, probably secondary to sepsis. Receiving IV fluids with improved urine output. Follow. (6) History of total right knee replacement: S/P right TKA 04/28/20. Seen by Ortho for follow-up. No apparent postop knee infection. (7) DVT prophylaxis: No anticoagulants due to heme positive stools. SCD's. Ambulate. (8) Discharge planning issues: Discharge disposition to be determined. given updates by phone this afternoon and this evening. Admission and Anticipated Discharge Date Admission Date: May 13, 2020 Subjective Recheck for suspected sepsis and other problems. Patient seen in their room around 1140. Patient admitted early this morning with suspected sepsis. Receiving IV fluids and antibiotics. No fever today. Persistent loose stools. Hastings catheter inserted for urinary retention. Review of Systems: Constitutional- febrile at home; no fever here. Cardiac- no chest pain. Pulmonary- no cough or SOB. GI- + diarrhea; no nausea, vomiting, melena, hematochezia. - as noted above. Otherwise, as noted above. Physical Exam Constitutional: no acute distress Respiratory: no respiratory distress Auscultation: lungs clear to auscultation bilaterally Cardiovascular: Rate/Rhythm: regular rate and regular rhythm Heart Sounds: no gallop Vessels: no JVD Extremities: no calf tenderness and no edema Gastrointestinal (Abdomen): normal bowel sounds, soft, nontender, no hepatosplenomegaly Musculoskeletal: Extremities: + extremities abnormal to inspection (right knee incision intact, mild erythema, no drainage) and no cyanosis Skin: no rashes, warm and dry Psychiatric: Orientation: alert and oriented x 3 Genitourinary: Hastings cath draining clear urine Results & Data Results & Data ([facility]) Vital Signs (Past 12 Hours) Vital Signs Temp Pulse Resp BP Pulse Ox 05/13/20 19:43 36.5 C 87 18 90/60 L 95 05/13/20 15:25 36.6 C 91 H 18 98/63 L 96 05/13/20 11:08 36.6 C 90 18 91/58 L 93 Laboratory Results Laboratory Results - last 24 hr 05/12/20 05/13/20 05/13/20 23:11 03:45 03:45 WBC 18.64 H D RBC 3.76 L Hgb 11.9 L Hct 35.1 L MCV 93.4 MCH 31.6 MCHC 33.9 RDW Std Deviation 47.7 H RDW Coeff of Dora 13.9 Plt Count 72 L MPV 12.1 H Immature Gran % (Auto) 1.4 Neut % (Auto) 91.8 Lymph % (Auto) 1.2 Crawford % (Auto) 5.3 Eos % (Auto) 0.2 Baso % (Auto) 0.1 Neut # (Auto) 17.12 H Lymph # (Auto) 0.23 L Crawford # (Auto) 0.98 H Eos # (Auto) 0.03 Baso # (Auto) 0.01 Immature Gran # (Auto) 0.27 H Toxic Vacuolation 2+ Giant Platelets 1+ Echinocytes 1+ APTT PTT Ratio Sodium 139 Potassium Chloride 110 H Carbon Dioxide 19 L Anion Gap 10.0 BUN 27 H Creatinine 2.28 H Est Cr Clr Drug Dosing 33.0 Est GFR ( Amer) 32.9 Est GFR (Non-Af Amer) 28.4 BUN/Creatinine Ratio 12.0 Glucose 119 H Estimat Average Glucose 126 Hemoglobin A1c 6.0 H Lactate Calcium 7.1 L Total Bilirubin 0.6 AST ALT 55 Alkaline Phosphatase 61 Troponin I 2.610 H* Total Protein 5.4 L Albumin 2.1 L Globulin 3.3 Albumin/Globulin Ratio 0.6 L Procalcitonin Urine Color Urine Appearance Urine pH Ur Specific [place] Urine Protein Urine Glucose (UA) Urine Ketones Urine Blood Urine Nitrite Urine Bilirubin Urine Urobilinogen Ur Leukocyte Esterase Urine WBC (Auto) Urine RBC (Auto) U Hyaline Cast (Auto) U Epithel Cells (Auto) Urine Bacteria (Auto) Ur Renal Epithelial Cell Amorphous Sediment Granular Casts Urine Yeast Stool Occult Bld Scrn Stl C. diff Tox B Gene E.chaffeensis DNA (PCR) Miscellaneous Test 05/13/20 05/13/20 05/13/20 03:45 03:45 03:59 WBC RBC Hgb Hct MCV MCH MCHC RDW Std Deviation RDW Coeff of Dora Plt Count MPV Immature Gran % (Auto) Neut % (Auto) Lymph % (Auto) Crawford % (Auto) Eos % (Auto) Baso % (Auto) Neut # (Auto) Lymph # (Auto) Crawford # (Auto) Eos # (Auto) Baso # (Auto) Immature Gran # (Auto) Toxic Vacuolation Giant Platelets Echinocytes APTT 34.7 H PTT Ratio 1.2 Sodium Potassium Chloride Carbon Dioxide Anion Gap BUN Creatinine Est Cr Clr Drug Dosing Est GFR ( Amer) Est GFR (Non-Af Amer) BUN/Creatinine Ratio Glucose Estimat Average Glucose Hemoglobin A1c Lactate 6.2 H* Calcium Total Bilirubin AST ALT Alkaline Phosphatase Troponin I Total Protein Albumin Globulin Albumin/Globulin Ratio Procalcitonin Urine Color Urine Appearance Urine pH Ur Specific [place] Urine Protein Urine Glucose (UA) Urine Ketones Urine Blood Urine Nitrite Urine Bilirubin Urine Urobilinogen Ur Leukocyte Esterase Urine WBC (Auto) Urine RBC (Auto) U Hyaline Cast (Auto) U Epithel Cells (Auto) Urine Bacteria (Auto) Ur Renal Epithelial Cell Amorphous Sediment Granular Casts Urine Yeast Stool Occult Bld Scrn Stl C. diff Tox B Gene E.chaffeensis DNA (PCR) Pending Miscellaneous Test 05/13/20 05/13/20 05/13/20 04:54 08:26 08:26 WBC RBC Hgb Hct MCV MCH MCHC RDW Std Deviation RDW Coeff of Dora Plt Count MPV Immature Gran % (Auto) Neut % (Auto) Lymph % (Auto) Crawford % (Auto) Eos % (Auto) Baso % (Auto) Neut # (Auto) Lymph # (Auto) Crawford # (Auto) Eos # (Auto) Baso # (Auto) Immature Gran # (Auto) Toxic Vacuolation Giant Platelets Echinocytes APTT PTT Ratio Sodium 137 Potassium 5.0 D 4.3 Chloride 109 H Carbon Dioxide 18 L Anion Gap 11.0 BUN 28 H Creatinine 1.96 H D Est Cr Clr Drug Dosing 38.4 Est GFR ( Amer) 39.6 Est GFR (Non-Af Amer) 34.1 BUN/Creatinine Ratio 14.2 Glucose 110 H Estimat Average Glucose Hemoglobin A1c Lactate 5.5 H* Calcium 7.3 L Total Bilirubin AST 54 H ALT Alkaline Phosphatase Troponin I 1.890 H* Total Protein Albumin Globulin Albumin/Globulin Ratio Procalcitonin Urine Color Urine Appearance Urine pH Ur Specific [place] Urine Protein Urine Glucose (UA) Urine Ketones Urine Blood Urine Nitrite Urine Bilirubin Urine Urobilinogen Ur Leukocyte Esterase Urine WBC (Auto) Urine RBC (Auto) U Hyaline Cast (Auto) U Epithel Cells (Auto) Urine Bacteria (Auto) Ur Renal Epithelial Cell Amorphous Sediment Granular Casts Urine Yeast Stool Occult Bld Scrn Stl C. diff Tox B Gene E.chaffeensis DNA (PCR) Miscellaneous Test 05/13/20 05/13/20 05/13/20 08:30 09:40 12:53 WBC RBC Hgb Hct MCV MCH MCHC RDW Std Deviation RDW Coeff of Dora Plt Count MPV Immature Gran % (Auto) Neut % (Auto) Lymph % (Auto) Crawford % (Auto) Eos % (Auto) Baso % (Auto) Neut # (Auto) Lymph # (Auto) Crawford # (Auto) Eos # (Auto) Baso # (Auto) Immature Gran # (Auto) Toxic Vacuolation Giant Platelets Echinocytes APTT PTT Ratio Sodium Potassium Chloride Carbon Dioxide Anion Gap BUN Creatinine Est Cr Clr Drug Dosing Est GFR ( Amer) Est GFR (Non-Af Amer) BUN/Creatinine Ratio Glucose Estimat Average Glucose Hemoglobin A1c Lactate 3.5 H* Calcium Total Bilirubin AST ALT Alkaline Phosphatase Troponin I Total Protein Albumin Globulin Albumin/Globulin Ratio Procalcitonin Urine Color Dark Yellow Urine Appearance Turbid A Urine pH 5.0 Ur Specific [place] 1.026 Urine Protein 1+ H Urine Glucose (UA) Negative Urine Ketones Trace H Urine Blood Negative Urine Nitrite Negative Urine Bilirubin Negative Urine Urobilinogen Negative Ur Leukocyte Esterase Negative Urine WBC (Auto) 10-30 H Urine RBC (Auto) 0-4 U Hyaline Cast (Auto) 1-5 U Epithel Cells (Auto) >30 H Urine Bacteria (Auto) 1+ H Ur Renal Epithelial Cell Not Reportable Amorphous Sediment Present A Granular Casts 10-20 H Urine Yeast Not Reportable Stool Occult Bld Scrn Stl C. diff Tox B Gene E.chaffeensis DNA (PCR) Miscellaneous Test Pending 05/13/20 05/13/20 05/13/20 12:53 14:55 14:55 WBC RBC Hgb Hct MCV MCH MCHC RDW Std Deviation RDW Coeff of Dora Plt Count MPV Immature Gran % (Auto) Neut % (Auto) Lymph % (Auto) Crawford % (Auto) Eos % (Auto) Baso % (Auto) Neut # (Auto) Lymph # (Auto) Crawford # (Auto) Eos # (Auto) Baso # (Auto) Immature Gran # (Auto) Toxic Vacuolation Giant Platelets Echinocytes APTT PTT Ratio Sodium Potassium Chloride Carbon Dioxide Anion Gap BUN Creatinine Est Cr Clr Drug Dosing Est GFR ( Amer) Est GFR (Non-Af Amer) BUN/Creatinine Ratio Glucose Estimat Average Glucose Hemoglobin A1c Lactate Calcium Total Bilirubin AST ALT Alkaline Phosphatase Troponin I Total Protein Albumin Globulin Albumin/Globulin Ratio Procalcitonin > 200.00 H Urine Color Urine Appearance Urine pH Ur Specific [place] Urine Protein Urine Glucose (UA) Urine Ketones Urine Blood Urine Nitrite Urine Bilirubin Urine Urobilinogen Ur Leukocyte Esterase Urine WBC (Auto) Urine RBC (Auto) U Hyaline Cast (Auto) U Epithel Cells (Auto) Urine Bacteria (Auto) Ur Renal Epithelial Cell Amorphous Sediment Granular Casts Urine Yeast Stool Occult Bld Scrn Positive A Stl C. diff Tox B Gene Negative Cdiff Gene E.chaffeensis DNA (PCR) Miscellaneous Test 05/13/20 05/13/20 05/13/20 19:38 19:38 19:38 WBC 22.48 H RBC 3.31 L Hgb 10.6 L Hct 30.4 L MCV 91.8 MCH 32.0 MCHC 34.9 RDW Std Deviation 47.8 H RDW Coeff of Dora 14.3 Plt Count 73 L MPV 11.6 H Immature Gran % (Auto) 8.1 Neut % (Auto) 83.3 Lymph % (Auto) 4.2 Crawford % (Auto) 3.1 Eos % (Auto) 1.3 Baso % (Auto) 0.0 Neut # (Auto) 18.70 H Lymph # (Auto) 0.94 L Crawford # (Auto) 0.70 H Eos # (Auto) 0.30 Baso # (Auto) 0.01 Immature Gran # (Auto) 1.83 H Toxic Vacuolation Giant Platelets Echinocytes APTT PTT Ratio Sodium 139 Potassium 4.1 Chloride 111 H Carbon Dioxide 20 L Anion Gap 8.0 BUN 30 H Creatinine 1.68 H Est Cr Clr Drug Dosing 44.8 Est GFR ( Amer) 47.7 Est GFR (Non-Af Amer) 41.1 BUN/Creatinine Ratio 17.7 Glucose 77 Estimat Average Glucose Hemoglobin A1c Lactate 4.5 H* Calcium 7.4 L Total Bilirubin AST ALT Alkaline Phosphatase Troponin I 0.836 H* Total Protein Albumin Globulin Albumin/Globulin Ratio Procalcitonin Urine Color Urine Appearance Urine pH Ur Specific [place] Urine Protein Urine Glucose (UA) Urine Ketones Urine Blood Urine Nitrite Urine Bilirubin Urine Urobilinogen Ur Leukocyte Esterase Urine WBC (Auto) Urine RBC (Auto) U Hyaline Cast (Auto) U Epithel Cells (Auto) Urine Bacteria (Auto) Ur Renal Epithelial Cell Amorphous Sediment Granular Casts Urine Yeast Stool Occult Bld Scrn Stl C. diff Tox B Gene E.chaffeensis DNA (PCR) Miscellaneous Test
[2020-05-13] MEDS: DAPTOmycin 450 MG in SYRINGE 0 ML IV SCH (21:34)
[2020-05-14] MEDS: CEFEPIME 2,000 MG in SYRINGE 7.5 ML IV SCH ×2 (01:19→13:43)
[2020-05-14] MEDS: SODIUM CHLORIDE 0.9% 1000ML 1,000 ML IV SCH ×3 (01:19→11:45)
[2020-05-14] MEDS: DOXYCYCLINE HYCLATE 100 MG in DEXTROSE 5% 100 ML IV SCH ×2 (01:19→13:43)
[2020-05-14] MEDS: TRAMADOL HCL 50 MG TABLET PO PRN (01:22)
[2020-05-14 05:58] LABS: Hematocrit (blood only) 25.7 % (42-52); Hemoglobin 8.9 g/dL (14.0-18.0); Mean Corpuscular Hemoglobin 31.8 pg (25-34); Mean Corpuscular Hgb Conc 34.6 g/dL (32-36); Mean Corpuscular Volume 91.8 fL (80-100); RDW Coefficient of Variation 14.4 % (11.5-14.5); RDW Standard Deviation 48.6 fL (36.4-46.3); White Blood Count 19.77 K/uL (4.8-10.8)
[2020-05-14 06:00] LABS: Mean Platelet Volume 10.9 fL (7.4-10.4); Platelet Count 61 K/uL (130-400)
[2020-05-14 06:15] LABS: Basophils # (auto) 0.01 K/uL (0-0.2); Basophils % (auto) 0.1 %; Dohle Bodies 1+; Eosinophils % (auto) 0.5 %; Immature Granulocytes # (auto) 0.14 K/uL (0.00-0.02); Immature Granulocytes % (auto) 0.7 %; Lymphocytes # (auto) 1.04 K/uL (1.2-3.4); Lymphocytes % (auto) 5.3 %; Monocytes % (auto) 2.5 %; Neutrophils # (auto) 17.98 K/uL (1.4-6.5); Neutrophils % (auto) 90.9 %
[2020-05-14 06:30] LABS: Albumin Level 1.8 gm/dl (3.4-5.0); BUN Creatinine Ratio 19.8 (10-20); Bilirubin Direct 0.2 mg/dl (0-0.2); Creatinine Clr Calc Pharmacy 61.6 ml/min; Est GFR (Non-African American) 52.6; Magnesium 2.2 mg/dl (1.8-2.4); Potassium 3.8 mmol/L (3.5-5.1)
[2020-05-14 06:33] LABS: Albumin Globulin Ratio 0.6 (0.9-2); Bilirubin,Total 0.9 mg/dl (0.2-1); Globulin 3.2 gm/dl (2.5-4.0)
[2020-05-14] MEDS: MULTIVITAMIN TAB PO SCH (08:13)
[2020-05-14] MEDS: ATOVAQUONE 750 MG/5 ML UDC PO SCH ×2 (08:13→17:36)
[2020-05-14] MEDS: PANTOprazole 40 MG in SYRINGE 0 ML IV SCH ×2 (10:44→21:48)
[2020-05-14] MEDS: AZITHROMYCIN 500 MG in DEXTROSE 5% 250 ML IV SCH (13:43)
[2020-05-14] MEDS: DAPTOmycin 450 MG in SYRINGE 0 ML IV SCH (21:49)
[2020-05-14] MEDS: ACETAMINOPHEN 325 MG TAB PO PRN (21:49)
--- NOTE | 2020-05-14 22:10 | Hospitalist Progress Note ---
Date of Service May 14, 2020 Assessment & Plan (1) Severe sepsis: Probable severe sepsis, present on admission, with hypotension, tachycardia, hyperlactemia, JAMES. Initial WBC 8380, but repeat 18,640. Initial lactate 9.8. Blood cultures obtained. Received broad-spectrum antibiotic coverage with daptomycin and ceftriaxone; subsequently received daptomycin and cefepime. Received fluid resuscitation with several liters of crystalloid. Procalcitonin > 200. Lactic acid trended down to 1.4. Source of infection not apparent. No apparent pneumonia per history, exam, or imaging. UA showed 10-30 WBC's and 1+ bacteria, but negative nitrites and negative leukocyte esterase. S/P recent right TKA, but no apparent infection. SARS-CoV-2 PCR last week at [facility] negative. Experiencing diarrhea. Stools negative for C diff here as well as last week at [facility]. Stool panel for multiple enteric pathogens also negative last week. 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 Consider tick-borne illness. Lyme screen negative. Peripheral smear negative for parasites. PCR's for anaplasmosis, ehrlichiosis, babesiosis ordered. Continue daptomycin and cefepime pending culture results. Start doxycycline to cover Anaplasma and Ehrlichia. Start azithromycin and atovaquone for possible babesiosis. (2) Elevated lactic acid level: Serum lactate markedly elevated at time of admission, improving with IV fluids and antibiotics. Suspected sepsis at outlined above. No apparent bowel ischemia / infarct per CT imaging. Follow. (3) Elevated troponin: Serum troponin as high as 2.610. No anginal symptoms. No significant EKG changes. Echo showed normal left ventricular wall motion and systolic function. Elevated troponin probably secondary to sepsis. Doubt myocardial infarction. (4) Thrombocytopenia: Platelet count at time of admission = 65,000. Thrombocytopenia probably due to infection, perhaps tick-borne illness. Platelet count today = 61,000. Follow. (5) Acute kidney injury: Serum creatinine at time of admission 2.09 compared to baseline of around 1.0. Acute kidney injury, probably secondary to sepsis. Received IV fluids with improved urine output. Creatinine today = 1.37. Follow. (6) History of total right knee replacement: S/P right TKA 04/28/20. Seen by Ortho for follow-up. No apparent postop knee infection. (7) Anemia: Baseline Hgb 16 on 04/21/20. Hgb at time of admission 14.1. Hgb today 8.9. Stools heme positive as discussed below. Suspect that hemodilution contributing factor. Follow. (8) Heme positive stool: Stools heme positive. Taking celecoxib postop for TKA. No apparent colitis per CT. Empiric Rx with PPI for UGI pathology. Follow H/H, repeat stools for OB. May need endoscopic evaluation. (9) DVT prophylaxis: No anticoagulants due to heme positive stools. SCD's. Ambulate. (10) Discharge planning issues: Discharge disposition to be determined. given update by phone this evening. Admission and Anticipated Discharge Date Admission Date: May 13, 2020 Subjective Recheck for suspected sepsis and other problems. Patient seen in their room around 1350. Feels much better today. No fever, chills, sweats. Would like to advance diet. Hastings cath removed. Review of Systems: Constitutional- no fever. Cardiac- no chest pain. Pulmonary- no cough or SOB. GI- persistent diarrhea; no nausea, vomiting, melena, hematochezia. - Hastings cath removed. Otherwise, as noted above. Physical Exam Constitutional: no acute distress Respiratory: no respiratory distress Auscultation: lungs clear to auscultation bilaterally Cardiovascular: Rate/Rhythm: regular rate and regular rhythm Heart Sounds: no gallop Vessels: no JVD Extremities: no calf tenderness and no edema Gastrointestinal (Abdomen): normal bowel sounds, soft, nontender, no hepatosplenomegaly Musculoskeletal: Extremities: + extremities abnormal to inspection (right knee incision intact, mild erythema, no drainage) and no cyanosis Skin: no rashes, warm and dry Psychiatric: Orientation: alert and oriented x 3 Results & Data Results & Data ([facility]) Vital Signs (Past 12 Hours) Vital Signs Temp Pulse Pulse Resp BP BP Pulse Ox 05/14/20 19:11 36.4 C L 74 20 105/66 97 05/14/20 19:05 73 05/14/20 15:44 36.7 C 72 18 106/70 97 05/14/20 12:01 36.5 C 72 20 115/60 Laboratory Results Laboratory Results - last 24 hr 05/14/20 05/14/20 05/14/20 05:50 05:50 05:50 WBC 19.77 H RBC 2.80 L Hgb 8.9 L Hct 25.7 L MCV 91.8 MCH 31.8 MCHC 34.6 RDW Std Deviation 48.6 H RDW Coeff of Dora 14.4 Plt Count 61 L MPV 10.9 H Immature Gran % (Auto) 0.7 Neut % (Auto) 90.9 Lymph % (Auto) 5.3 Buchanan % (Auto) 2.5 Eos % (Auto) 0.5 Baso % (Auto) 0.1 Neut # (Auto) 17.98 H Lymph # (Auto) 1.04 L Buchanan # (Auto) 0.50 Eos # (Auto) 0.10 Baso # (Auto) 0.01 Immature Gran # (Auto) 0.14 H Dohle Bodies 1+ Sodium 142 Potassium 3.8 Chloride 117 H Carbon Dioxide 20 L Anion Gap 5.0 BUN 27 H Creatinine 1.37 D Est Cr Clr Drug Dosing 61.6 Est GFR ( Amer) 61.0 Est GFR (Non-Af Amer) 52.6 BUN/Creatinine Ratio 19.8 Glucose 81 Lactate 1.4 Calcium 7.0 L Magnesium 2.2 Total Bilirubin 0.9 Direct Bilirubin 0.2 AST 29 ALT 40 Alkaline Phosphatase 58 Total Protein 5.0 L Albumin 1.8 L Globulin 3.2 Albumin/Globulin Ratio 0.6 L Procalcitonin Stl Cryptosporidium Ag 05/14/20 05/14/20 05:50 08:15 WBC RBC Hgb Hct MCV MCH MCHC RDW Std Deviation RDW Coeff of Dora Plt Count MPV Immature Gran % (Auto) Neut % (Auto) Lymph % (Auto) Buchanan % (Auto) Eos % (Auto) Baso % (Auto) Neut # (Auto) Lymph # (Auto) Buchanan # (Auto) Eos # (Auto) Baso # (Auto) Immature Gran # (Auto) Dohle Bodies Sodium Potassium Chloride Carbon Dioxide Anion Gap BUN Creatinine Est Cr Clr Drug Dosing Est GFR ( Amer) Est GFR (Non-Af Amer) BUN/Creatinine Ratio Glucose Lactate Calcium Magnesium Total Bilirubin Direct Bilirubin AST ALT Alkaline Phosphatase Total Protein Albumin Globulin Albumin/Globulin Ratio Procalcitonin > 200.00 H Stl Cryptosporidium Ag Cancelled Microbiology 05/13/20 09:40 Urine,Straight Cath Urine Culture - Preliminary No growth - Less than 1,000 colonies/mL, Final report to follow. 05/13/20 12:53 Blood Blood Parasites Smear - Final 05/12/20 21:30 Blood Aerobic Blood Culture - Preliminary No growth in Aerobic bottle after 24 hours. 05/12/20 21:30 Blood Anaerobic Blood Culture - Final 05/12/20 21:18 Blood Aerobic Blood Culture - Preliminary No growth in Aerobic bottle after 24 hours. 05/12/20 21:18 Blood Anaerobic Blood Culture - Preliminary No growth in Anaerobic bottle after 24 hours. 05/12/20 21:18 Blood Blood Parasites Smear - Final
[2020-05-15] MEDS: DOXYCYCLINE HYCLATE 100 MG in DEXTROSE 5% 100 ML IV SCH ×2 (02:06→11:58)
[2020-05-15] MEDS: MULTIVITAMIN TAB PO SCH (07:25)
[2020-05-15] MEDS: ATOVAQUONE 750 MG/5 ML UDC PO SCH ×2 (07:25→15:59)
[2020-05-15] MEDS: PANTOprazole 40 MG in SYRINGE 0 ML IV SCH ×2 (07:28→20:59)
[2020-05-15 07:54] LABS: Hemoglobin 9.6 g/dL (14.0-18.0); Mean Corpuscular Hemoglobin 31.9 pg (25-34); Mean Corpuscular Hgb Conc 34.3 g/dL (32-36); Mean Platelet Volume 11.5 fL (7.4-10.4); Platelet Count 103 K/uL (130-400); RDW Coefficient of Variation 14.5 % (11.5-14.5); RDW Standard Deviation 49.4 fL (36.4-46.3); Red Blood Count 3.01 M/uL (4.7-6.1)
[2020-05-15 08:18] LABS: Albumin Level 2.6 gm/dl (3.4-5.0); BUN Creatinine Ratio 13.3 (10-20); Bilirubin Direct 0.2 mg/dl (0-0.2); C Reactive Protein 9.47 mg/dl (0-0.29); Calcium 8.4 mg/dl (8.5-10.1); Creatinine Clr Calc Pharmacy 80.5 ml/min; Est GFR (African American) 84.1; Est GFR (Non-African American) 72.6; Magnesium 2.1 mg/dl (1.8-2.4); Potassium 3.5 mmol/L (3.5-5.1)
[2020-05-15 08:22] LABS: Albumin Globulin Ratio 0.7 (0.9-2); Bilirubin,Total 1.1 mg/dl (0.2-1); Globulin 3.9 gm/dl (2.5-4.0); Total Protein 6.5 gm/dl (6.4-8.2)
[2020-05-15 08:31] LABS: Basophils # (auto) 0.02 K/uL (0-0.2); Basophils % (auto) 0.1 %; Eosinophils # (auto) 0.24 K/uL (0-0.5); Eosinophils % (auto) 1.5 %; Immature Granulocytes # (auto) 0.05 K/uL (0.00-0.02); Immature Granulocytes % (auto) 0.3 %; Lymphocytes # (auto) 2.18 K/uL (1.2-3.4); Lymphocytes % (auto) 13.2 %; Monocytes # (auto) 0.39 K/uL (0.11-0.59); Monocytes % (auto) 2.4 %; Neutrophils # (auto) 13.62 K/uL (1.4-6.5); Neutrophils % (auto) 82.5 %
[2020-05-15] MEDS: CEFEPIME 2,000 MG in SYRINGE 7.5 ML IV SCH ×2 (10:29→17:54)
[2020-05-15] MEDS: AZITHROMYCIN 500 MG in DEXTROSE 5% 250 ML IV SCH (11:59)
[2020-05-15] MEDS: DAPTOmycin 450 MG in SYRINGE 0 ML IV SCH (21:01)
[2020-05-15] MEDS: ACETAMINOPHEN 325 MG TAB PO PRN (22:11)
--- NOTE | 2020-05-15 22:58 | Hospitalist Progress Note ---
Date of Service May 15, 2020 Assessment & Plan (1) Severe sepsis: Probable severe sepsis, present on admission, with hypotension, tachycardia, hyperlactemia, JAMES. Initial WBC 8380, but repeat 18,640. Initial lactate 9.8. Blood cultures obtained. Received broad-spectrum antibiotic coverage with daptomycin and ceftriaxone; subsequently received daptomycin and cefepime. Received fluid resuscitation with several liters of crystalloid. Procalcitonin > 200. Lactic acid trended down to 1.4. Source of infection not apparent. No apparent pneumonia per history, exam, or imaging. UA showed 10-30 WBC's and 1+ bacteria, but negative nitrites and negative leukocyte esterase. S/P recent right TKA, but no apparent infection. SARS-CoV-2 PCR last week at [facility] negative. Experiencing diarrhea. Stools negative for C diff here as well as last week at [facility]. Stool panel for multiple enteric pathogens also negative last week. 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 Consider tick-borne illness. Lyme screen negative. Peripheral smear negative for parasites. PCR's for anaplasmosis, ehrlichiosis, babesiosis ordered. Continue daptomycin and cefepime pending culture results. Receiving doxycycline to cover Anaplasma and Ehrlichia. Receiving azithromycin and atovaquone for possible babesiosis. Clinically improved. Afebrile. WBC peaked at 18,640, now down to 16,500. Procalcitonin > 200 --> 88. Blood cultures remain negative. Tick-borne studies pending. (2) Elevated lactic acid level: Serum lactate markedly elevated at time of admission, improving with IV fluids and antibiotics. Suspected sepsis at outlined above. No apparent bowel ischemia / infarct per CT imaging. Follow. (3) Elevated troponin: Serum troponin as high as 2.610. No anginal symptoms. No significant EKG changes. Echo showed normal left ventricular wall motion and systolic function. Elevated troponin probably secondary to sepsis. Doubt myocardial infarction. (4) Acute kidney injury: Serum creatinine at time of admission 2.09 compared to baseline of around 1.0. Acute kidney injury, probably secondary to sepsis. Received IV fluids with improved urine output. Creatinine today = 1.05. Follow. (5) Anemia: Baseline Hgb 16 on 04/21/20. Hgb at time of admission 14.1. Hgb 8.9 on 05/14, 9.6 today. No gross GI bleeding; stools heme positive as discussed below. Suspect that hemodilution contributing factor. Follow. (6) Heme positive stool: Stools heme positive. Taking celecoxib postop for TKA. No apparent colitis per CT. Empiric Rx with PPI for UGI pathology. Follow H/H, repeat stools for OB. May need endoscopic evaluation. (7) Thrombocytopenia: Platelet count at time of admission = 65,000. Thrombocytopenia probably due to infection, perhaps tick-borne illness. Platelet count today = 103,000. Follow. (8) Abnormal liver function tests: Laboratory Tests 05/12/20 05/14/20 05/15/20 21:18 05:50 07:31 Total Bilirubin 0.9 0.9 1.1 H AST 53 H 29 59 H ALT 63 40 95 H Alkaline Phosphatase [address] abdomen at [facility] 05/05/20 - mild stranding of pancreas, unremarkable GB and bile duct. MRCP @ [facility] 05/07/20 - small hepatic cysts, normal biliary ducts, gallbladder, pancreas, pancreatic duct. CT @ [facility] 05/13/20 - no apparent abnormalities of gallbladder, bile duct, pancreas. Follow. (9) History of total right knee replacement: S/P right TKA 04/28/20. Seen by Ortho for follow-up. No apparent postop knee infection. Receiving PT. (10) DVT prophylaxis: No anticoagulants due to heme positive stools. SCD's. Ambulate. (11) Discharge planning issues: Discharge disposition to be determined. Admission and Anticipated Discharge Date Admission Date: May 13, 2020 Subjective Recheck for suspected sepsis and other problems. Patient seen in their room around 1550. Doing well. No fever, chills, sweats. Worked with PT today. No significant pain right knee. Review of Systems: Constitutional- no fever. Cardiac- no chest pain. Pulmonary- no cough or SOB. GI- resolving diarrhea; no nausea, vomiting, melena, hematochezia. - voiding without difficulty. Otherwise, as noted above. Physical Exam Constitutional: no acute distress Respiratory: no respiratory distress Auscultation: lungs clear to auscultation bilaterally Cardiovascular: Rate/Rhythm: regular rate and regular rhythm Heart Sounds: no gallop Vessels: no JVD Extremities: no calf tenderness and no edema Gastrointestinal (Abdomen): normal bowel sounds, soft, nontender, no hepatosplenomegaly Musculoskeletal: Extremities: + extremities abnormal to inspection (right knee incision intact, mild erythema, no drainage) and no cyanosis Skin: no rashes, warm and dry Psychiatric: Orientation: alert and oriented x 3 Results & Data Results & Data ([facility]) Vital Signs (Past 12 Hours) Vital Signs Temp Pulse Pulse Resp BP BP Pulse Ox 05/15/20 19:36 37.0 C 72 18 137/75 97 05/15/20 16:00 70 05/15/20 15:04 36.6 C 72 20 151/84 H 98 05/15/20 11:52 36.5 C 70 18 123/73 98 Laboratory Results Laboratory Results - last 24 hr 05/15/20 05/15/20 05/15/20 07:31 07:31 07:31 WBC 16.50 H RBC 3.01 L Hgb 9.6 L Hct 28.0 L MCV 93.0 MCH 31.9 MCHC 34.3 RDW Std Deviation 49.4 H RDW Coeff of Dora 14.5 Plt Count 103 L D MPV 11.5 H Immature Gran % (Auto) 0.3 Neut % (Auto) 82.5 Lymph % (Auto) 13.2 [place] % (Auto) 2.4 Eos % (Auto) 1.5 Baso % (Auto) 0.1 Neut # (Auto) 13.62 H Lymph # (Auto) 2.18 [place] # (Auto) 0.39 Eos # (Auto) 0.24 Baso # (Auto) 0.02 Immature Gran # (Auto) 0.05 H Haptoglobin Sodium 142 Potassium 3.5 Chloride 114 H Carbon Dioxide 21 Anion Gap 7.0 BUN 14 Creatinine 1.05 Est Cr Clr Drug Dosing 80.5 Est GFR ( Amer) 84.1 Est GFR (Non-Af Amer) 72.6 BUN/Creatinine Ratio 13.3 Glucose 83 Calcium 8.4 L D Magnesium 2.1 Total Bilirubin 1.1 H Direct Bilirubin 0.2 AST 59 H ALT 95 H Alkaline Phosphatase 74 Lactate Dehydrogenase 245 H C-Reactive Protein 9.47 H Total Protein 6.5 D Albumin 2.6 L Globulin 3.9 Albumin/Globulin Ratio 0.7 L Procalcitonin 05/15/20 05/15/20 07:31 07:31 WBC RBC Hgb Hct MCV MCH MCHC RDW Std Deviation RDW Coeff of Dora Plt Count MPV Immature Gran % (Auto) Neut % (Auto) Lymph % (Auto) [place] % (Auto) Eos % (Auto) Baso % (Auto) Neut # (Auto) Lymph # (Auto) [place] # (Auto) Eos # (Auto) Baso # (Auto) Immature Gran # (Auto) Haptoglobin Pending Sodium Potassium Chloride Carbon Dioxide Anion Gap BUN Creatinine Est Cr Clr Drug Dosing Est GFR ( Amer) Est GFR (Non-Af Amer) BUN/Creatinine Ratio Glucose Calcium Magnesium Total Bilirubin Direct Bilirubin AST ALT Alkaline Phosphatase Lactate Dehydrogenase C-Reactive Protein Total Protein Albumin Globulin Albumin/Globulin Ratio Procalcitonin 87.99 H Microbiology 05/13/20 09:40 Urine,Straight Cath Urine Culture - Final No growth - less than 1,000 colonies/mL. 05/12/20 21:30 Blood Aerobic Blood Culture - Preliminary No growth in Aerobic bottle after 48 hours. 05/12/20 21:30 Blood Anaerobic Blood Culture - Final 05/12/20 21:18 Blood Aerobic Blood Culture - Preliminary No growth in Aerobic bottle after 48 hours. 05/12/20 21:18 Blood Anaerobic Blood Culture - Preliminary No growth in Anaerobic bottle after 48 hours. 05/13/20 12:53 Blood Blood Parasites Smear - Final 05/12/20 21:18 Blood Blood Parasites Smear - Final
[2020-05-16] MEDS: TRAMADOL HCL 50 MG TABLET PO PRN (00:07)
[2020-05-16] MEDS: DOXYCYCLINE HYCLATE 100 MG in DEXTROSE 5% 100 ML IV SCH ×2 (00:15→14:16)
[2020-05-16] MEDS: CEFEPIME 2,000 MG in SYRINGE 7.5 ML IV SCH ×2 (02:19→11:43)
[2020-05-16 03:29] LABS: Ehrlichia chaff DNA Bld Not Detected (Not Detected)
[2020-05-16 05:38] LABS: Basophils # (auto) 0.02 K/uL (0-0.2); Basophils % (auto) 0.2 %; Eosinophils # (auto) 0.19 K/uL (0-0.5); Hematocrit (blood only) 25.4 % (42-52); Hemoglobin 8.7 g/dL (14.0-18.0); Immature Granulocytes # (auto) 0.03 K/uL (0.00-0.02); Immature Granulocytes % (auto) 0.3 %; Lymphocytes # (auto) 2.46 K/uL (1.2-3.4); Lymphocytes % (auto) 26.5 %; Mean Corpuscular Hemoglobin 31.6 pg (25-34); Mean Corpuscular Hgb Conc 34.3 g/dL (32-36); Mean Corpuscular Volume 92.4 fL (80-100); Mean Platelet Volume 11.4 fL (7.4-10.4); Monocytes # (auto) 0.42 K/uL (0.11-0.59); Monocytes % (auto) 4.5 %; Neutrophils # (auto) 6.16 K/uL (1.4-6.5); Neutrophils % (auto) 66.5 %; Platelet Count 148 K/uL (130-400); RDW Coefficient of Variation 14.7 % (11.5-14.5); RDW Standard Deviation 48.8 fL (36.4-46.3); Red Blood Count 2.75 M/uL (4.7-6.1); White Blood Count 9.28 K/uL (4.8-10.8)
[2020-05-16 06:21] LABS: Albumin Level 2.2 gm/dl (3.4-5.0); BUN Creatinine Ratio 13.3 (10-20); Bilirubin Direct 0.2 mg/dl (0-0.2); Calcium 8.1 mg/dl (8.5-10.1); Est GFR (African American) 96.2; Potassium 3.5 mmol/L (3.5-5.1)
[2020-05-16 06:24] LABS: Albumin Globulin Ratio 0.6 (0.9-2); Bilirubin,Total 1.1 mg/dl (0.2-1); Globulin 3.4 gm/dl (2.5-4.0); Total Protein 5.6 gm/dl (6.4-8.2)
[2020-05-16] MEDS: PANTOprazole 40 MG TAB PO SCH ×2 (07:51→21:09)
[2020-05-16] MEDS: MULTIVITAMIN TAB PO SCH (07:51)
[2020-05-16] MEDS: ATOVAQUONE 750 MG/5 ML UDC PO SCH (07:52)
[2020-05-16] MEDS: AZITHROMYCIN 500 MG in DEXTROSE 5% 250 ML IV SCH (14:16)
--- NOTE | 2020-05-16 16:26 | Hospitalist Progress Note ---
Date of Service May 16, 2020 Assessment & Plan (1) Severe sepsis: Right TKA at [facility] 04/28/20 with unremarkable course. Hospitalized at [facility] 05/05/20 - 05/07/20 with febrile illness: SARS-CoV-2 PCR negative blood cultures negative stool C diff, Giardia, PCR panel negative questions of pancreatitis on CT, but lipase normal received vancomycin and piperacillin / tazo for a few days Presented to ED at [facility] 05/13/20 fever, nausea, vomiting, diarrhea. Probable severe sepsis, present on admission, with hypotension, tachycardia, hyperlactemia, JAMES. Initial WBC 8380, but repeat 18,640 with left shift + lymphopenia. Initial lactate 9.8. Blood cultures obtained. Received broad-spectrum antibiotic coverage with daptomycin and ceftriaxone; subsequently received daptomycin and cefepime. Received fluid resuscitation with several liters of crystalloid. Procalcitonin > 200. Lactic acid trended down to 1.4. Source of infection not apparent. No apparent pneumonia per history, exam, or imaging. UA showed 10-30 WBC's and 1+ bacteria, but negative nitrites and negative leukocyte esterase. Experiencing diarrhea. Repeat stool negative for C diff. Seen by Ortho- no apparent postop infection right knee. 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 Consider tick-borne illness. Lyme screen negative. Peripheral smear negative for parasites. PCR's for anaplasmosis, ehrlichiosis, babesiosis ordered. Received daptomycin and cefepime for broad spectrum anti-bacterial coverage. Received doxycycline to cover Anaplasma and Ehrlichia. Received azithromycin and atovaquone for possible babesiosis. Clinically improved. Afebrile. WBC peaked at 18,640, now down to 9280. Procalcitonin > 200 --> 41. Blood cultures remain negative. Tick-borne studies negative. Case discussed with ID at [facility]. Data suggest anaplasmosis. Negative PCR may be false negative, perhaps secondary to antibiotics received at [facility]. Continue doxycycline for 14 day course. Stop other antibiotics. Re-evaluate as necessary for recurrent fever or worrisome symptoms. (2) Elevated lactic acid level: Serum lactate markedly elevated at time of admission, improving with IV fluids and antibiotics. Suspected sepsis at outlined above. No apparent bowel ischemia / infarct per CT imaging. 9.8 --> --> 1.4. (3) Elevated troponin: Serum troponin as high as 2.610. No anginal symptoms. No significant EKG changes. Echo showed normal left ventricular wall motion and systolic function. Elevated troponin probably secondary to sepsis. Doubt myocardial infarction. (4) Acute kidney injury: Serum creatinine at time of admission 2.09 compared to baseline of around 1.0. Acute kidney injury, probably secondary to sepsis. Received IV fluids with improved urine output. Creatinine today = 0.94. Follow. (5) Anemia: Baseline Hgb 16 on 04/21/20. Hgb at time of admission 14.1. Hgb 8.9 on 05/14, 8.7 today. No gross GI bleeding. 1 of 2 stools heme positive as discussed below. Suspect that infection and/or hemodilution contributing factors. Follow. (6) Heme positive stool: Stools heme positive 05/13, heme negative 05/16. Was taking celecoxib postop for TKA. No apparent colitis per CT. Empiric Rx with PPI for UGI pathology. Colonoscopy 2014 showed tics, no polyps. Follow H/H, repeat stools for OB. (7) Thrombocytopenia: Platelet count at time of admission = 65,000. Thrombocytopenia probably due to infection, perhaps tick-borne illness. Platelet count today = 148,000. Follow. (8) Abnormal liver function tests: Laboratory Tests 05/12/20 05/14/20 05/15/20 21:18 05:50 07:31 Total Bilirubin 0.9 0.9 1.1 H AST 53 H 29 59 H ALT 63 40 95 H Alkaline Phosphatase [address] [facility] 05/05/20 - mild stranding of pancreas, unremarkable GB and bile duct. MRCP @ [facility] 05/07/20 - small hepatic cysts, normal biliary ducts, gallbladder, pancreas, pancreatic duct. CT @ [facility] 05/13/20 - no apparent abnormalities of gallbladder, bile duct, pancreas. Follow. (9) History of total right knee replacement: S/P right TKA 04/28/20. Seen by Ortho for follow-up. No apparent postop knee infection. Receiving PT. (10) DVT prophylaxis: No anticoagulants due to heme positive stools and thrombocytopenia. SCD's. Ambulate. (11) Discharge planning issues: Anticipated discharge to home. Medical follow-up with Gallito Maher PA-C. given update by phone this afternoon. Admission and Anticipated Discharge Date Admission Date: May 13, 2020 Subjective Recheck for suspected sepsis and other problems. Patient seen in their room around 1110. Doing well. No fever, chills, sweats. GI symptoms improved- no further N/V; diarrhea better. Right knee feels OK. Ambulating in hallway. Review of Systems: Constitutional- no fever. Cardiac- no chest pain. Pulmonary- no cough or SOB. GI- no, melena, hematochezia. - voiding without difficulty. Otherwise, as noted above. Physical Exam Constitutional: no acute distress Respiratory: no respiratory distress Auscultation: lungs clear to auscultation bilaterally Cardiovascular: Rate/Rhythm: regular rate and regular rhythm Heart Sounds: no gallop Vessels: no JVD Extremities: no calf tenderness and no edema Gastrointestinal (Abdomen): normal bowel sounds, soft, nontender, no hepatosplenomegaly Musculoskeletal: Extremities: + extremities abnormal to inspection (right knee incision intact, mild erythema, no drainage) and no cyanosis Skin: no rashes, warm and dry Psychiatric: Orientation: alert and oriented x 3 Results & Data Results & Data ([facility]) Vital Signs (Past 12 Hours) Vital Signs Temp Pulse Pulse Resp BP BP Pulse Ox 05/16/20 15:13 36.4 C L 70 18 138/76 98 05/16/20 11:48 36.6 C 68 18 143/83 H 97 05/16/20 08:34 65 05/16/20 07:59 36.6 C 69 18 129/71 96 05/16/20 04:09 36.4 C L 67 18 107/63 95 Laboratory Results Laboratory Results - last 24 hr 05/12/20 05/13/20 05/13/20 21:18 03:45 08:30 WBC RBC Hgb Hct MCV MCH MCHC RDW Std Deviation RDW Coeff of Dora Plt Count MPV Immature Gran % (Auto) Neut % (Auto) Lymph % (Auto) Bell % (Auto) Eos % (Auto) Baso % (Auto) Neut # (Auto) Lymph # (Auto) Bell # (Auto) Eos # (Auto) Baso # (Auto) Immature Gran # (Auto) Sodium Potassium Chloride Carbon Dioxide Anion Gap BUN Creatinine Est Cr Clr Drug Dosing Est GFR ( Amer) Est GFR (Non-Af Amer) BUN/Creatinine Ratio Glucose Calcium Total Bilirubin Direct Bilirubin AST ALT Alkaline Phosphatase Total Protein Albumin Globulin Albumin/Globulin Ratio Procalcitonin Stool Occult Bld Scrn Stl Cryptosporidium Ag A. phagocytophilum DNA Not Detected E.chaffeensis DNA (PCR) Not Detected Giardia Antigen Miscellaneous Test REPORT 05/16/20 05/16/20 05/16/20 04:23 04:23 04:23 WBC 9.28 RBC 2.75 L Hgb 8.7 L Hct 25.4 L MCV 92.4 MCH 31.6 MCHC 34.3 RDW Std Deviation 48.8 H RDW Coeff of Dora 14.7 H Plt Count 148 MPV 11.4 H Immature Gran % (Auto) 0.3 Neut % (Auto) 66.5 Lymph % (Auto) 26.5 Bell % (Auto) 4.5 Eos % (Auto) 2.0 Baso % (Auto) 0.2 Neut # (Auto) 6.16 Lymph # (Auto) 2.46 Bell # (Auto) 0.42 Eos # (Auto) 0.19 Baso # (Auto) 0.02 Immature Gran # (Auto) 0.03 H Sodium 145 Potassium 3.5 Chloride 114 H Carbon Dioxide 24 Anion Gap 7.0 BUN 12 Creatinine 0.94 Est Cr Clr Drug Dosing 90.0 Est GFR ( Amer) 96.2 Est GFR (Non-Af Amer) 83.0 BUN/Creatinine Ratio 13.3 Glucose 86 Calcium 8.1 L Total Bilirubin 1.1 H Direct Bilirubin 0.2 AST 43 H ALT 84 H Alkaline Phosphatase 72 Total Protein 5.6 L Albumin 2.2 L Globulin 3.4 Albumin/Globulin Ratio 0.6 L Procalcitonin 40.62 H Stool Occult Bld Scrn Stl Cryptosporidium Ag A. phagocytophilum DNA E.chaffeensis DNA (PCR) Giardia Antigen Miscellaneous Test 05/16/20 05/16/20 09:55 09:55 WBC RBC Hgb Hct MCV MCH MCHC RDW Std Deviation RDW Coeff of Dora Plt Count MPV Immature Gran % (Auto) Neut % (Auto) Lymph % (Auto) Bell % (Auto) Eos % (Auto) Baso % (Auto) Neut # (Auto) Lymph # (Auto) Bell # (Auto) Eos # (Auto) Baso # (Auto) Immature Gran # (Auto) Sodium Potassium Chloride Carbon Dioxide Anion Gap BUN Creatinine Est Cr Clr Drug Dosing Est GFR ( Amer) Est GFR (Non-Af Amer) BUN/Creatinine Ratio Glucose Calcium Total Bilirubin Direct Bilirubin AST ALT Alkaline Phosphatase Total Protein Albumin Globulin Albumin/Globulin Ratio Procalcitonin Stool Occult Bld Scrn Negative Stl Cryptosporidium Ag Pending A. phagocytophilum DNA E.chaffeensis DNA (PCR) Giardia Antigen Pending Miscellaneous Test Microbiology 05/13/20 09:40 Urine,Straight Cath Urine Culture - Final No growth - less than 1,000 colonies/mL. 05/12/20 21:30 Blood Aerobic Blood Culture - Preliminary No growth in Aerobic bottle after 48 hours. 05/12/20 21:30 Blood Anaerobic Blood Culture - Final 05/12/20 21:18 Blood Aerobic Blood Culture - Preliminary No growth in Aerobic bottle after 48 hours. 05/12/20 21:18 Blood Anaerobic Blood Culture - Preliminary No growth in Anaerobic bottle after 48 hours. 05/13/20 12:53 Blood Blood Parasites Smear - Final 05/12/20 21:18 Blood Blood Parasites Smear - Final
[2020-05-16] MEDS: DOXYCYCLINE HYCLATE 100 MG CAP PO SCH (21:09)
[2020-05-17 06:11] LABS: Basophils # (auto) 0.04 K/uL (0-0.2); Basophils % (auto) 0.6 %; Eosinophils # (auto) 0.15 K/uL (0-0.5); Eosinophils % (auto) 2.2 %; Hemoglobin 9.5 g/dL (14.0-18.0); Immature Granulocytes # (auto) 0.05 K/uL (0.00-0.02); Immature Granulocytes % (auto) 0.7 %; Lymphocytes # (auto) 2.28 K/uL (1.2-3.4); Lymphocytes % (auto) 33.6 %; Mean Corpuscular Hemoglobin 31.5 pg (25-34); Mean Corpuscular Hgb Conc 33.9 g/dL (32-36); Mean Corpuscular Volume 92.7 fL (80-100); Mean Platelet Volume 11.2 fL (7.4-10.4); Monocytes # (auto) 0.55 K/uL (0.11-0.59); Monocytes % (auto) 8.1 %; Neutrophils # (auto) 3.71 K/uL (1.4-6.5); Neutrophils % (auto) 54.8 %; Platelet Count 205 K/uL (130-400); RDW Coefficient of Variation 14.5 % (11.5-14.5); RDW Standard Deviation 48.4 fL (36.4-46.3); Red Blood Count 3.02 M/uL (4.7-6.1); White Blood Count 6.78 K/uL (4.8-10.8)
[2020-05-17] MEDS: ACETAMINOPHEN 325 MG TAB PO PRN (06:13)
[2020-05-17 06:47] LABS: Albumin Level 2.5 gm/dl (3.4-5.0); BUN Creatinine Ratio 9.3 (10-20); Bilirubin Direct 0.2 mg/dl (0-0.2); Calcium 8.3 mg/dl (8.5-10.1); Creatinine Clr Calc Pharmacy 98.4 ml/min; Est GFR (African American) 103.3; Est GFR (Non-African American) 89.1; Potassium 3.6 mmol/L (3.5-5.1)
[2020-05-17 06:50] LABS: Albumin Globulin Ratio 0.7 (0.9-2); Bilirubin,Total 1.1 mg/dl (0.2-1); C Reactive Protein 1.32 mg/dl (0-0.29); Globulin 3.7 gm/dl (2.5-4.0); Total Protein 6.2 gm/dl (6.4-8.2)
[2020-05-17] MEDS: DOXYCYCLINE HYCLATE 100 MG CAP PO SCH ×2 (09:46→20:20)
[2020-05-17] MEDS: PANTOprazole 40 MG TAB PO SCH ×2 (09:46→20:20)
[2020-05-17] MEDS: MULTIVITAMIN TAB PO SCH (09:47)
--- NOTE | 2020-05-17 15:30 | Ultrasound Report ---
RIGHT LOWER EXTREMITY VENOUS DOPPLER HISTORY: edema right leg, s/p TKA COMPARISON STUDY: None. FINDINGS: There is normal compressibility, flow, and augmentation within the right lower extremity de ep venous system. IMPRESSION: No DVT within the right lower extremity ACT 112: Negative or not required by law. Electronically signed by: Dorian Davenport M.D. 05/17/2020 3:29 PM
[2020-05-18] MEDS: ACETAMINOPHEN 325 MG TAB PO PRN (04:44)
[2020-05-18] MEDS: PANTOprazole 40 MG TAB PO SCH (07:53)
[2020-05-18] MEDS: MULTIVITAMIN TAB PO SCH (07:53)
[2020-05-18] MEDS: DOXYCYCLINE HYCLATE 100 MG CAP PO SCH (07:53)
--- NOTE | 2020-05-18 14:45 | Hospitalist Progress Note ---
Date of Service May 18, 2020 Assessment & Plan (1) Severe sepsis: Right TKA at [facility] 04/28/20 with unremarkable course. Hospitalized at [facility] 05/05/20 - 05/07/20 with febrile illness: SARS-CoV-2 PCR negative blood cultures negative stool C diff, Giardia, PCR panel negative questions of pancreatitis on CT, but lipase normal received vancomycin and piperacillin / tazo for a few days Presented to ED at [facility] 05/13/20 fever, nausea, vomiting, diarrhea. Probable severe sepsis, present on admission, with hypotension, tachycardia, hyperlactemia, JAMES. Initial WBC 8380, but repeat 18,640 with left shift + lymphopenia. Initial lactate 9.8. Blood cultures obtained. Received broad-spectrum antibiotic coverage with daptomycin and ceftriaxone; subsequently received daptomycin and cefepime. Received fluid resuscitation with several liters of crystalloid. Procalcitonin > 200. Lactic acid trended down to 1.4. Source of infection not apparent. No apparent pneumonia per history, exam, or imaging. UA showed 10-30 WBC's and 1+ bacteria, but negative nitrites and negative leukocyte esterase. Experiencing diarrhea. Repeat stool negative for C diff. Seen by Ortho- no apparent postop infection right knee. 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 Consider tick-borne illness. Lyme screen negative. Peripheral smear negative for parasites. PCR's for anaplasmosis, ehrlichiosis, babesiosis ordered. Received daptomycin and cefepime for broad spectrum anti-bacterial coverage. Received doxycycline to cover Anaplasma and Ehrlichia. Received azithromycin and atovaquone for possible babesiosis. Clinically improved. Afebrile. WBC peaked at 18,640, now down to 9280. Procalcitonin > 200 --> 41. Blood cultures remain negative. Tick-borne studies negative. Case discussed with ID at [facility]. Data suggest anaplasmosis. Negative PCR may be false negative, perhaps secondary to antibiotics received at [facility]. Continue doxycycline for 14 day course. Stop other antibiotics. Re-evaluate as necessary for recurrent fever or worrisome symptoms. (2) Elevated lactic acid level: Serum lactate markedly elevated at time of admission, improving with IV fluids and antibiotics. Suspected sepsis at outlined above. No apparent bowel ischemia / infarct per CT imaging. 9.8 --> --> 1.4. (3) Elevated troponin: Serum troponin as high as 2.610. No anginal symptoms. No significant EKG changes. Echo showed normal left ventricular wall motion and systolic function. Elevated troponin probably secondary to sepsis. Doubt myocardial infarction. (4) Acute kidney injury: Serum creatinine at time of admission 2.09 compared to baseline of around 1.0. Acute kidney injury, probably secondary to sepsis. Received IV fluids with improved urine output. Creatinine 05/17 = 0.86. Follow. (5) Anemia: Baseline Hgb 16 on 04/21/20. Hgb at time of admission 14.1. Hgb 8.9 on 05/14, 9.5 on 05/17. No gross GI bleeding. 1 of 2 stools heme positive as discussed below. Suspect that infection and/or hemodilution contributing factors. (6) Heme positive stool: Stools heme positive 05/13, heme negative 05/16. Was taking celecoxib postop for TKA. No apparent colitis per CT. Empiric Rx with PPI for UGI pathology. Colonoscopy 2014 showed tics, no polyps. Follow H/H, repeat stools for OB. (7) Thrombocytopenia: Platelet count at time of admission = 65,000. Thrombocytopenia probably due to infection, perhaps tick-borne illness. Platelet count 05/17 = 205,000. Follow. (8) Abnormal liver function tests: Laboratory Tests 05/12/20 05/14/20 05/15/20 21:18 05:50 07:31 Total Bilirubin 0.9 0.9 1.1 H AST 53 H 29 59 H ALT 63 40 95 H Alkaline Phosphatase [address] abdomen at [facility] 05/05/20 - mild stranding of pancreas, unremarkable GB and bile duct. MRCP @ [facility] 05/07/20 - small hepatic cysts, normal biliary ducts, gallbladder, pancreas, pancreatic duct. CT @ [facility] 05/13/20 - no apparent abnormalities of gallbladder, bile duct, pancreas. Follow. (9) History of total right knee replacement: S/P right TKA 04/28/20. Seen by Ortho for follow-up. No apparent postop knee infection. Receiving PT. (10) Edema of lower extremity: Developed edema RLE with fluid resuscitation. S/P recent right TKA. Venous duplex negative for DVT. Best to avoid diuretics if possible. TEDS / elevation. (11) DVT prophylaxis: No anticoagulants due to heme positive stools and thrombocytopenia. SCD's. Ambulate. (12) Discharge planning issues: Discharge to home. Medical follow-up with Gallito Maher PA-C. given update by phone. Admission and Anticipated Discharge Date Admission Date: May 13, 2020 Subjective Recheck for suspected sepsis and other problems. Feels great. No fever, chills, sweats. GI symptoms improved- no further N/V/diarrhea. RLE improved with TEDS. Right knee feels OK. Ambulating in hallway. Ready to go home. Review of Systems: Constitutional- no fever. Cardiac- no chest pain. Pulmonary- no cough or SOB. GI- as noted above - voiding without difficulty. Otherwise, as noted above. Physical Exam Constitutional: no acute distress Respiratory: no respiratory distress Auscultation: lungs clear to auscultation bilaterally Cardiovascular: Rate/Rhythm: regular rate and regular rhythm Heart Sounds: no gallop Vessels: no JVD Extremities: + edema (trace - 1+ edema RLE); no calf tenderness Gastrointestinal (Abdomen): normal bowel sounds, soft, nontender, no hepatosplenomegaly Musculoskeletal: Extremities: + extremities abnormal to inspection (right knee incision intact, mild erythema, no drainage) and no cyanosis Skin: no rashes, warm and dry Psychiatric: Orientation: alert and oriented x 3 Results & Data Results & Data ([facility]) Vital Signs (Past 12 Hours) Vital Signs Temp Pulse Resp BP Pulse Ox 05/18/20 07:50 36.5 C 71 18 143/79 H 96 Laboratory Results 05/17/20 04:55 05/17/20 04:55
--- NOTE | 2020-05-20 07:41 | Discharge Summary ---
Date of Service Date of Admission: 05/13/20 Date of Discharge: 05/18/20 Admission HPI Per Admitting Provider History obtained from patient and records. Medical history significant for hypertension, GERD, prediabetes, family history dementia on preventative Aricept as per records, past tobacco/alcohol abuse. Recent confinement [facility] from April 25-2019 for elective R total knee arthroplasty under Orthopedics service. Patient admitted at [facility] from May 05-2019 for sepsis, mild pancreatitis, and thrombocytopenia. No clear source for infection as per records. Antibiotic subsequently discontinued. No clear etiology for pancreatitis as patient had stop claims to have stopped drinking years ago. Denied recent alcohol consumption. Outpatient GI referral for endoscopic ultrasound contemplated in 6 weeks. Patient not feeling well yesterday feeling feverish and nauseous. Patient felt more sick after oxycodone and Celebrex Rx. Achy abdominal pain following emesis symptoms. No diarrhea as per patient. Denies UTI symptoms. No chest pain, no S OB, no cough/flulike symptoms. Usual achy right knee pain although no unusual swelling noted. Achy back pain after falling down. Achy headache without neck pain without LOC. No recollection of recent tick bites although patient enjoys hunting. Patient noted to be hypotensive and tachycardic upon arrival of EMS. Ceftriaxone and doxycycline given at the ER for sepsis. Principal Diagnosis severe sepsis suspected anaplasmosis acute kidney injury thrombocytopenia Discharge Data Allergies Allergy/AdvReac Type Severity Reaction Status Date / Time Iodinated Contrast Media Allergy Unknown Swelling Verified 05/12/20 21:40 celecoxib [From Celebrex] AdvReac Intermediate Nausea/Vomi Verified 05/12/20 21:54 ting oxycodone AdvReac Intermediate Nausea/Vomi Verified 05/12/20 21:54 ting morphine AdvReac Unknown AGITATION;AGGRESSIVE; Verified 05/12/20 21:41 RASH Consultations 05/12/20 21:59 ED Decision to Admit Stat 05/13/20 01:53 Consult Orthopedic Surgery Routine Ordered Studies 05/12/20 22:46 CT abd pelvis wo con Urgent CT head/brain wo con Urgent 05/17/20 13:56 US venous doppler LE RT Urgent Hospital Course (1) Severe sepsis: Right TKA at [facility] 04/28/20 with unremarkable course. Hospitalized at [facility] 05/05/20 - 05/07/20 with febrile illness: SARS-CoV-2 PCR negative blood cultures negative stool C diff, Giardia, PCR panel negative questions of pancreatitis on CT, but lipase normal received vancomycin and piperacillin / tazo for a few days Presented to ED at [facility] 05/13/20 fever, nausea, vomiting, diarrhea. Probable severe sepsis, present on admission, with hypotension, tachycardia, hyp erlactemia, JAMES. Initial WBC 8380, but repeat 18,640 with left shift + lymphopenia. Initial lactate 9.8. Blood cultures obtained. Received broad-spectrum antibiotic coverage with daptomycin and ceftriaxone; subsequently received daptomycin and cefepime. Received fluid resuscitation with several liters of crystalloid. Procalcitonin > 200. Lactic acid trended down to 1.4. Source of infection not apparent. No apparent pneumonia per history, exam, or imaging. UA showed 10-30 WBC's and 1+ bacteria, but negative nitrites and negative leukocyte esterase. Experiencing diarrhea. Repeat stool negative for C diff. Seen by Ortho- no apparent postop infection right knee. 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 Consider tick-borne illness. Lyme screen negative. Peripheral smear negative for parasites. PCR's for anaplasmosis, ehrlichiosis, babesiosis ordered. Received daptomycin and cefepime for broad spectrum anti-bacterial coverage. Received doxycycline to cover Anaplasma and Ehrlichia. Received azithromycin and atovaquone for possible babesiosis. Clinically improved. Afebrile. WBC peaked at 18,640, now down to 9280. Procalcitonin > 200 --> 41. Blood cultures remain negative. Tick-borne studies negative. Case discussed with ID at [facility]. Data suggest anaplasmosis. Negative PCR may be false negative, perhaps secondary to antibiotics received at [facility]. Continue doxycycline for 14 day course. Stop other antibiotics. Re-evaluate as necessary for recurrent fever or worrisome symptoms. (2) Elevated lactic acid level: Serum lactate markedly elevated at time of admission, improving with IV fluids and antibiotics. Suspected sepsis at outlined above. No apparent bowel ischemia / infarct per CT imaging. 9.8 --> --> 1.4. (3) Elevated troponin: Serum troponin as high as 2.610. No anginal symptoms. No significant EKG changes. Echo showed normal left ventricular wall motion and systolic function. Elevated troponin probably secondary to sepsis. Doubt myocardial infarction. (4) Acute kidney injury: Serum creatinine at time of admission 2.09 compared to baseline of around 1.0. Acute kidney injury, probably secondary to sepsis. Received IV fluids with improved urine output. Creatinine 05/17 = 0.86. Follow. (5) Anemia: Baseline Hgb 16 on 04/21/20. Hgb at time of admission 14.1. Hgb 8.9 on 05/14, 9.5 on 05/17. No gross GI bleeding. 1 of 2 stools heme positive as discussed below. Suspect that infection and/or hemodilution contributing factors. (6) Heme positive stool: Stools heme positive 05/13, heme negative 05/16. Was taking celecoxib postop for TKA. No apparent colitis per CT. Empiric Rx with PPI for UGI pathology. Colonoscopy 2014 showed tics, no polyps. Follow H/H, repeat stools for OB. (7) Thrombocytopenia: Platelet count at time of admission = 65,000. Thrombocytopenia probably due to infection, perhaps tick-borne illness. Platelet count 05/17 = 205,000. Follow. (8) Abnormal liver function tests: Laboratory Tests 05/12/20 05/14/20 05/15/20 21:18 05:50 07:31 Total Bilirubin 0.9 0.9 1.1 H AST 53 H 29 59 H ALT 63 40 95 H Alkaline Phosphatase [address] abdomen at [facility] 05/05/20 - mild stranding of pancreas, unremarkable GB and bile duct. MRCP @ [facility] 05/07/20 - small hepatic cysts, normal biliary ducts, gallbladder, pancreas, pancreatic duct. CT @ [facility] 05/13/20 - no apparent abnormalities of gallbladder, bile duct, pancreas. Follow. (9) History of total right knee replacement: S/P right TKA 04/28/20. Seen by Ortho for follow-up. No apparent postop knee infection. Receiving PT. (10) Edema of lower extremity: Developed edema RLE with fluid resuscitation. S/P recent right TKA. Venous duplex negative for DVT. Best to avoid diuretics if possible. TEDS / elevation. (11) DVT prophylaxis: No anticoagulants due to heme positive stools and thrombocytopenia. SCD's. Ambulate. (12) Discharge planning issues: Discharge to home. Medical follow-up with Gallito Maher PA-C. given update by phone. Total Time Total Time Spent Total Time Spent (In Minutes): 60 Discharge Plan Discharge Items Patient Disposition: Home - Self-Care Reason For Visit: fever Discharge Diagnosis: fever- suspected anaplasmosis from a tick Condition on Discharge: Good Activity: Resume your previous activity Non-emergency contact: Primary Care Provider, Hospitalist and Surgeon Call non-emergency contact if: you have any medication questions, your symptoms worsen and your temperature is above 101 Follow-up/Referrals: René Hatfield, [Surgeon] - (As scheduled. Please call office to reschedule appointment if you missed it. ) Gallito Maher PA-C [Primary Care Provider] - 05/25/20 2:00 pm (05/25/2020 2:00 PM Gallito Maher PA-C [facility] ) Diet: Heart Healthy Addtl Attending Provider Instructions: MEDICATION CHANGES: Stop celecoxib (Celebrex). Can cause stomach ulcers and kidney problems. Increase omeprazole (Prilosec) to 20 mg twice a day for 1 week, then go back to once a day. Hold aspirin for 1 week, then resume. Hold atorvastatin (Lipitor) for 1 week, then resume. Hold magnesium while taking doxycycline, then resume. SUMMARY OF TEST RESULTS: Kidney tests showed worsening kidney function, better by discharge. Liver tests showed high liver enzymes, better by discharge. Blood count showed low platelet count, better by discharge. Blood count showed anemia, better by discharge. Blood sugars were slight high (as high as 129), but better by discharge. Fasting blood sugar was 88 on 05/17/20. Hemoglobin A1c was 6.0 (borderline high, but not in diabetes range). Stool sample 05/13/20 showed some blood in stool. Repeat stool sample on 05/16/20 did not show any blood. Blood cultures did not show any bacteria in bloodstream. Chest x-ray did not show any pneumonia. CT scan of brain did not show any problems. CT scan of abdomen did not show any new problems with liver, gallbladder, pancreas, bowel, or appendix. You do have diverticulosis of colon, but no sign of diverticulitis (inflammation / infection). Urine sample did not show any infection. Stool samples for C diff, E coli, Salmonella negative. Tests for diseases carried by ticks like Lyme disease, anaplasmosis, ehrlichiosis, and babesiosis were negative. (BUT... you received antibiotics which may have affected the test results.) Ultrasound of right leg did not show any blood clots. RECOMMENDATIONS FOR FOLLOW-UP: Follow-up lab tests in clinic: Complete blood count. Comprehensive chemistry profile. Stool samples to recheck for blood. OTHER INSTRUCTIONS: For swelling of right leg & foot: Keep leg elevated when able. Where elastic stockings during the day. Do whatever you can to avoid ticks. Inspect for ticks whenever you return from [facility] [employer] [place]. Protect yourself from excessive sun exposure while taking doxycycline. Seek medical attention if you have: * temperature above 101 * chest pain or trouble breathing * abdominal pain, nausea, vomiting * diarrhea, dark stools or bloody stools * any unanswered questions or concerns Call [phone] if symptoms are severe. Please take good care of yourself. Call if you have any questions or problems. You can reach a [facility] hospitalist on duty at [facility] 24 hours a day by calling [phone]. My cell # is [phone]. Pending Studies at Discharge: Yes (stool tests for Giardia and Cryptosporidia) Stand-Alone Forms: My [facility], Smoking Cessation Medications and DC Order Prescriptions: New doxycycline hyclate 100 mg Capsule 100 mg PO BID Qty: 16 RF: 0 Continued magnesium 250 mg Tablet 250 mg PO QAM RF: 0 loratadine [Claritin] 10 mg Tablet 10 mg PO DAILY PRN (Reason: Allergy Symptoms) RF: 0 omeprazole 20 mg Tablet,Disintegrat, Delay Rel 20 mg PO QAM RF: 0 atorvastatin [Lipitor] 20 mg Tablet 20 mg PO QAM RF: 0 multivitamin Tablet 1 tab PO QAM RF: 0 donepezil 10 mg tablet 10 mg PO HS RF: 0 aspirin 81 mg tablet,delayed release (DR/EC) 81 mg PO QAM RF: 0 acetaminophen 500 mg tablet 1,000 mg PO Q8H RF: 0 fluticasone propionate [Flonase Allergy Relief] 50 mcg/actuation Jordan,Suspension 2 spray INTRANASAL DAILY PRN (Reason: Allergy Symptoms) RF: 0 Discharge Orders: Discharge Order (Routine); Ordered 05/18/20 Ordered By: Liam Ny/Other Patient Handouts: ED Tick Facts, A1C Admission Data Admit Date/Time: 05/13/20 00:18 Attending Provider: Liam Bhakta Admit Provider: Flo Anderson Primary Care Provider: Gallito Maher Other Providers: Flo Anderson ; René Hatfield Other Interventions: Discharge Summary Assessment (RN) Last Done: 05/18/20 14:48 DC Date/Time DO NOT enter until pt leaves facility: 05/18/20 16:35
== END 2020-05-18 16:35 | disposition home health service (06) | DRG 872 ==
LOC: EDUNIT# 20:18 → EDBD 20:18 → ED 20:18 → 2S 05-13 00:18 → 3W 05-16 18:52